=== PATIENT | male | born 1955 | race Caucasian/White ===

== ENCOUNTER 2016-09-27 08:56 | Emergency (ER) | payer OTHER ==
[2016-09-27 10:18] VITALS: BP 143/87
--- NOTE | 2016-09-27 10:49 | UC ---
Ear Complaint HPI - HPI Summary HPI Summary: 61 yo male with chronic sinus problems presents with a 4-5 day hx of progressively worsening left ear pain/popping Significant post nasal drip and left sided throat and neck pain no fever or chills able to eat and drink ok but swallowing causes his ear pain to get worse - History of Current Complaint Chief Complaint: UCEar Stated Complaint: LEFT EAR PAIN Time Seen by Provider: 09/27/16 10:30 Hx Obtained From: Patient Onset/Duration: Gradual Onset, Lasting Days Severity Initially: Mild Severity Currently: Severe Pain Intensity: 8 Pain Scale Used: 0-10 Numeric Associated Signs/Symptoms: Positive: URI Symptoms - Allergies/Home Medications Allergies/Adverse Reactions: Allergies Allergy/AdvReac Type Severity Reaction Status Date / Time Morphine AdvReac Intermediate Itching Verified 09/18/15 10:52 Home Medications: Home Medications Metformin ER (NF) 500 mg PO DAILY 09/27/16 [History Confirmed 09/27/16] Zolpidem Tartrate [Ambien] 10 mg PO DAILY 09/27/16 [History Confirmed 09/27/16] PMH/Surg Hx/FS Hx/Imm Hx Endocrine History Of: Reports: Diabetes - Surgical History Surgical History: Yes Surgery Procedure, Year, and Place: HERNIA REPAIR. LEFT LOWER LUNG LOBECTOMY. lithotripsy ? - Family History Known Family History: Positive: Hypertension, Diabetes - Social History Alcohol Use: None Substance Use Type: None Smoking Status (MU): Current Every Day Smoker Type: Cigarettes Amount Used/How Often: 1 pk daily Length of Time of Smoking/Using Tobacco: 30 YRS Have You Smoked in the Last Year: Yes Household Exposure Type: Cigarettes Review of Systems Constitutional: Negative Skin: Negative Eyes: Negative ENT: Sore Throat, Ear Ache, Nasal Discharge Respiratory: Negative Cardiovascular: Negative Gastrointestinal: Negative Genitourinary: Negative Motor: Negative Neurovascular: Negative Musculoskeletal: Negative Neurological: Negative Psychological: Negative All Other Systems Reviewed And Are Negative: Yes Physical Exam Triage Information Reviewed: Yes Appearance: Well-Appearing, No Pain Distress, Well-Nourished Vital Signs: Initial Vital Signs Temp 98.0 F 09/27/16 09:59 Pulse 71 09/27/16 09:59 Resp 16 09/27/16 09:59 BP 143/87 09/27/16 09:59 Pulse Ox 98 09/27/16 09:59 Vital Signs Reviewed: Yes Eyes: Positive: Conjunctiva Clear ENT: Positive: Nasal congestion, Nasal drainage, Other: - bilat max sinus tenderness. Negative: TMs normal - left TM retracted and red, TM bulging, Trismus, Muffled/hoarse voice Dental: Negative: Gross Decay/Caries @, Dental Fracture @, Abscess @ Neck: Positive: Supple, Nontender, No Lymphadenopathy Respiratory: Positive: Lungs clear, Normal breath sounds, No respiratory distress, No accessory muscle use Cardiovascular: Positive: RRR, No Murmur. Negative: Pulses Normal, Brisk Capillary Refill Abdomen Description: Positive: No Organomegaly, Soft, Bruit Bowel Sounds: Positive: Present Musculoskeletal: Positive: ROM Intact, No Edema Neurological: Positive: Alert. Negative: Muscle Tone Normal, Fatigued Psychological Exam: Normal Skin Exam: Normal Ear Complaint Course/Dx - Differential Dx/Diagnosis Provider Diagnoses: acute sinusitis. left serous otitis media Discharge - Discharge Plan Condition: Stable Disposition: HOME Prescriptions: Cefuroxime Axetil [Ceftin 250 MG] 250 mg PO BID #20 tab Fluticasone NASAL SPRAY 50MCG* [Flonase NASAL SPRAY 50MCG*] 2 spray BOTH NARES DAILY #1 btl HYDROcodone/ACETAMIN 5-325 MG* [Chandler 5-325 TAB*] 1 tab PO Q4H PRN #10 tab MDD 3 PRN Reason: Pain Patient Education Materials: Sinusitis (ED), Serous Otitis Media (ED) Referrals: [facility] [Primary Care Provider] - 1 Week (if not better) Additional Instructions: use narcotic at night if having trouble sleeping recheck for new or worsening symptoms
== END 2016-09-27 11:13 | disposition home or self-care (01) ==
LOC: UCCORT 08:56
DX: J01.90 Acute sinusitis, unspecified (principal); H65.92 Unspecified nonsuppurative otitis media, left ear; E11.9 Type 2 diabetes mellitus without complications; F17.210 Nicotine dependence, cigarettes, uncomplicated; Z79.84 Long term (current) use of oral hypoglycemic drugs; Z88.5 Allergy status to narcotic agent
CPT/HCPCS: 99212; G0463

== ENCOUNTER 2017-10-17 15:28 | Emergency (ER) | payer OTHER ==
--- OUTSIDE RECORDS SUMMARY | 2017-10-17 16:04 | XMS REPORT ---
:1955 External Reference #:[id number] Author Organization [facility] Address [address] [facility]/[address] [place] [address] Phone [phone] Care Team Providers Name Role Phone Kristopher Coleman M.D. Care Team Information Outsole Beveler Unavailable Payers Type Date Identification Numbers Payment Provider Subscriber Commercial Policy Number: [id number] Lif[employer]it [employer] Luis Armando Browning PayID: [id number] [address] [place] [address] Commercial Effective: Policy Number: [facility] Arm[facility] Browning 2017 [id number] [place] Expires: 2017 PayID: [id number] [address] [place] [address] Problems Description No Information Family History Date Family Member(s) Problem(s) Comments Father 82 Father No Current Problems Mother 82 Mother No Current Problems Mother Breast Cancer RESOLVED Children 6 Social History Type Date Description Comments Marital Status Has been 1 time Occupation [employer] Work Status Retired ETOH Use Denies alcohol use Smoking Patient is a current smoker, SMOKES ABOUT 1 PPD- STARTED smokes every day ABOUT 16 YO. HAS BEEN AND ON AND OFF SMOKER Daily Caffeine Consumes on average 4 cups of regular coffee per day Daily Caffeine Consumes on average 2 sodas per DIET PEPSI day Allergies, Adverse Reactions, Alerts Date Description Reaction Status Severity Comments 08/09/2016 Environmental active 08/09/2016 Morphine active 08/09/2016 NKDA inactive Medications Medication Date Status Form Strength Qnty SIG Indications Ordering Provider Amoxicillin 10/08/ Tablets 500mg 40tabs 2 by mouth J20.9 Jared, 2017 - twice a day Kristopher Leonard, 10/18/ M.D. 2018 Freestyle 07/16/ Active Strips 100unit fs qa and E11.65 Jared Lite Test 2017 s at bedtime Ahmahollie Lainez., as needed M.D. dx:e11. Janumet 06/26/ Active Tablets ER 50-1000mg Sample tab one by E11.65 Jared, 2017 24HR mouth twice Ahmad M., a day M.D. Metformin HCL 06/21/ Active Tablets ER 500mg 180tabs 1 tab by E11.65 Jared, ER 2016 24HR mouth at Ahmad M., noon M.D. Flonase 01/17/ Active Suspension 50mcg/Act 47.400m 1 J30.9 Jared, Allergy 2017 l intranasal Kristopher M., Relief puff twice M.D. a day Altace 12/04/ Active Capsules 2.5mg 90caps 1 by mouth E11.65 Jared, 2017 every day Kristopher Leonard M.D. I10 Lancets 08/09/2016 Active Misc Thin 28G 360units fs every Jared, Super Thin before Ahmad M., 28G meals and M.D. at bedtime Nexium Active Capsules DR 40mg 90caps 1 cap by K21.9 Jared, mouth every Ahmad M., day as M.D. needed K30 Zolpidem Active Tablets 10mg 30tabs 1-2 tab G47.00 Jared, Tartrate by mouth Ahmad M., at M.D. bedtime as needed Amoxicillin 08/09/2017 - Hx Tablets 500mg 40tabs 2 by H66.93 Jared, 08/19/2017 mouth Ahmad M., twice a M.D. day Cipro 07/16/2017 - Hx Tablets 500mg 20tabs 1 tab by J01.40 Jared, 07/24/2017 mouth Ahmad M., twice a M.D. day Cipro 05/16/2017 - Hx Tablets 500mg 20tabs 1 tab by J01.40 Jared, 05/24/2017 mouth Ahmad M., twice a M.D. day Nicotine Step 01/04/2017 - Hx Patches 14mg/24 30units 1 skin F17.210 Jared, 2 03/21/2017 24HR HR every day Claire Peñaloza - Hx Tablets 25mg TK 1 T PO E11.65 Unknown 09/06/2016 qd Immunizations CPT Code Status Date Vaccine Lot # [id number] Given 06/24/2016 Flu Vaccine Vital Signs Date Vital Result Comment 10/08/2017 BP Systolic 134 mmHg BP Diastolic 64 mmHg Height 70.25 inches 5'10.25" Weight 233.00 lb BMI (Body Mass Index) 33.2 kg/m2 Heart Rate 84 /min Body Temperature 97.2 F Respiratory Rate 16 /min 08/09/2017 BP Systolic 138 mmHg BP Diastolic 88 mmHg Height 70.25 inches 5'10.25" Weight 241.00 lb BMI (Body Mass Index) 34.3 kg/m2 Heart Rate 64 /min Respiratory Rate 18 /min 07/16/2017 BP Systolic 146 mmHg BP Diastolic 76 mmHg Height 70.25 inches 5'10.25" Weight 228.00 lb BMI (Body Mass Index) 32.5 kg/m2 Heart Rate 79 /min Respiratory Rate 16 /min 06/26/2017 BP Systolic 160 mmHg BP Diastolic 78 mmHg Height 70.25 inches 5'10.25" Weight 232.00 lb BMI (Body Mass Index) 33.0 kg/m2 Heart Rate 88 /min Respiratory Rate 16 /min 06/21/2017 BP Systolic 138 mmHg BP Diastolic 70 mmHg Height 70.25 inches 5'10.25" Weight 235.00 lb BMI (Body Mass Index) 33.5 kg/m2 Heart Rate 86 /min Respiratory Rate 16 /min 05/16/2017 BP Systolic 140 mmHg BP Diastolic 76 mmHg Height 70.25 inches 5'10.25" Weight 234.00 lb BMI (Body Mass Index) 33.3 kg/m2 Heart Rate 74 /min Respiratory Rate 16 /min 04/11/2017 BP Systolic 150 mmHg BP Diastolic 68 mmHg Height 70.25 inches 5'10.25" Weight 234.00 lb BMI (Body Mass Index) 33.3 kg/m2 Heart Rate 78 /min Respiratory Rate 16 /min 02/22/2017 BP Systolic 142 mmHg BP Diastolic 80 mmHg Height 70.25 inches 5'10.25" Weight 234.00 lb BMI (Body Mass Index) 33.3 kg/m2 Heart Rate 74 /min Respiratory Rate 18 /min 01/31/2017 BP Systolic 130 mmHg BP Diastolic 76 mmHg Height 70.25 inches 5'10.25" Weight 236.00 lb BMI (Body Mass Index) 33.6 kg/m2 Heart Rate 74 /min Respiratory Rate 18 /min 01/04/2017 BP Systolic 140 mmHg BP Diastolic 80 mmHg Height 70.25 inches 5'10.25" Weight 240.00 lb BMI (Body Mass Index) 34.2 kg/m2 Heart Rate 71 /min Respiratory Rate 18 /min 12/04/2016 BP Systolic 128 mmHg BP Diastolic 84 mmHg Height 70.25 inches 5'10.25" Weight 229.00 lb BMI (Body Mass Index) 32.6 kg/m2 Heart Rate 81 /min Respiratory Rate 18 /min 09/06/2016 BP Systolic 126 mmHg BP Diastolic 78 mmHg Height 70.25 inches 5'10.25" Weight 230.00 lb BMI (Body Mass Index) 32.8 kg/m2 Heart Rate 60 /min Respiratory Rate 16 /min 08/09/2016 BP Systolic 128 mmHg BP Diastolic 84 mmHg Height 70.25 inches 5'10.25" Weight 230.00 lb BMI (Body Mass Index) 32.8 kg/m2 Heart Rate 73 /min Respiratory Rate 18 /min Results Test Date Test Result H/L Range Note CBC With Diff 06/21/2017 WBC 9.0 10*3/uL (4.1-11.0) RBC 5.01 10*6/uL (4.60-6.10) HGB 15.6 g/dL (13.5-18.0) HCT 45.6 % (41.0-53.0) MCV 91.1 fL (80.0-95.0) MCH 31.1 pg (27.0-32.0) MCHC 34.2 g/dL (32.0-36.0) RDW 13.3 % (10.5-14.5) PLT 179 10*3/uL (150-450) MPV 10.3 fL (7.1-10.7) Neut % 60.8 % (35.0-75.0) Lymph % 25.1 % (16.0-52.0) Sharkey % 10.7 % High (0.0-8.0) Eos % 2.4 % (0.0-5.0) Baso % 1.0 % (0.0-4.0) Neut # 5.5 10*3/uL (1.8-7.7) Lymph # 2.3 10*3/uL (1.2-4.8) Sharkey # 1.0 10*3/uL High (0.0-0.8) Eos # 0.2 10*3/uL (0.0-0.5) Baso # 0.1 10*3/uL (0.0-0.2) CMP 06/21/2017 Sodium 138 mmol/L (136-145) Potassium 4.0 mmol/L (3.6-5.2) Chloride 104 mmol/L (100-108) Co2 27 mmol/L (22-31) Anion Gap 7 mmol/L (7-16) Urea Nitrogen 11 mg/dL (7-24) Creatinine 1.14 mg/dL (0.80-1.30) BUN/Creat Ratio 9.6 RATIO Low (10.0-20.0) Glucose 243 mg/dL High (70-99) Calcium 8.7 mg/dL (8.4-10.2) Total Protein 7.0 g/dL (6.4-8.2) Albumin 3.8 g/dL (3.2-4.5) Globulin 3.2 g/dL (2.7-4.3) Alb/Glob Ratio 1.2 RATIO Alkaline Phosphatase 64 U/L (45-117) Bilirubin,Total 0.9 mg/dL (0.0-1.0) Ast (Sgot) 26 U/L (11-39) Alt (SGPT) 70 U/L (12-78) GFR >60 ml/min/1.73m2 (>59) GFR ( Amer) >60 ml/min/1.73m2 (>59) GFR Interpretation <SEE NOTE> 1 Hemoglobin A1c 06/21/2017 Hemoglobin A1c @ 9.6 % High (4.0-6.0) Est Average Glucose 229 mg/dL 2 Laboratory test finding 06/21/2017 TSH,Ultrasensitive @ 0.789 mIU/L ( 0.360-4.170) Lipid 06/21/2017 Cholesterol @ 142 mg/dL (0-200) Triglyceride @ 166 mg/dL (30-200) HDL Cholesterol @ 49 mg/dL (>40) 3 Chol/HDL Ratio 2.9 RATIO 4 LDL Chol (Calc) 60 mg/dL (<130) 5 Laboratory test finding 06/21/2017 PSA,Total @ 2.0 ng/mL (0.0-4.0) 6 Lipid 08/09/2016 Cholesterol @ 163 mg/dL (0-200) Triglyceride @ 117 mg/dL (30-200) HDL Cholesterol @ 51 mg/dL (>40) 7 Chol/HDL Ratio 3.2 RATIO 8 LDL Chol (Calc) 89 mg/dL (<130) 9 [place] Urine Albumin @ 08/09/2016 Albumin, Urine 1.06 mg/dL Creatinine,Urine 104.00 mg/dL Alb/Creatinine Ratio 10.2 ug/mg (0.0-29.9) Laboratory test finding 08/09/2016 TSH,Ultrasensitive @ 0.935 mIU/L ( 0.360-4.170) Uric Acid 3.4 mg/dL Low (3.5-7.2) 25 Hydroxy Vit D @ 27 ng/mL Low (31-100) 10 Hemoglobin A1c 08/09/2016 Hemoglobin A1c @ 8.2 % High (4.0-6.0) Est Average Glucose 189 mg/dL 11 CMP 08/09/2016 Sodium 138 mmol/L (136-145) Potassium 4.8 mmol/L (3.6-5.2) Chloride 101 mmol/L (100-108) Co2 27 mmol/L (22-31) Anion Gap 10 mmol/L (7-16) Urea Nitrogen 15 mg/dL (7-24) Creatinine 1.23 mg/dL (0.80-1.30) BUN/Creat Ratio 12.2 RATIO (10.0-20.0) Glucose 157 mg/dL High (70-99) Calcium 8.7 mg/dL (8.4-10.2) Total Protein 7.3 g/dL (6.4-8.2) Albumin 3.9 g/dL (3.2-4.5) Globulin 3.4 g/dL (2.7-4.3) Alb/Glob Ratio 1.1 RATIO Alkaline Phosphatase 69 U/L (45-117) Bilirubin,Total 0.5 mg/dL (0.0-1.0) Ast (Sgot) 28 U/L (11-39) Alt (SGPT) 48 U/L (12-78) GFR >60 ml/min/1.73m2 (>59) GFR ( Amer) >60 ml/min/1.73m2 (>59) GFR Interpretation <SEE NOTE> 12 CBC With Diff 08/09/2016 WBC 9.1 10*3/uL (4.1-11.0) RBC 5.60 10*6/uL (4.60-6.10) HGB 16.8 g/dL (13.5-18.0) HCT 50.3 % (41.0-53.0) MCV 89.8 fL (80.0-95.0) MCH 29.9 pg (27.0-32.0) MCHC 33.4 g/dL (32.0-36.0) RDW 12.8 % (10.5-14.5) PLT 226 10*3/uL (150-450) MPV 9.7 fL (7.1-10.7) Neut % 63.0 % (35.0-75.0) Lymph % 24.4 % (16.0-52.0) Sharkey % 9.2 % High (0.0-8.0) Eos % 2.5 % (0.0-5.0) Baso % 0.9 % (0.0-4.0) Neut # 5.8 10*3/uL (1.8-7.7) Lymph # 2.2 10*3/uL (1.2-4.8) Sharkey # 0.8 10*3/uL (0.0-0.8) Eos # 0.2 10*3/uL (0.0-0.5) Baso # 0.1 10*3/uL (0.0-0.2) 1 NORMAL KIDNEY FUNCTION OR MILD DISEASE - GFR >OR=60 CHRONIC KIDNEY DISEASE - GFR 15 - 59 RENAL FAILURE - GFR <15 Est. GFR calculation based on the MDRD study equation, which assumes a steady state for creatinine. Est. GFR should not be used for medication dosing. 2 HEMOGLOBIN A1c INTERPRETATION: 4.0-6.0% GOOD GLYCEMIC CONTROL 6.1-6.5% AT RISK FOR HYPERGLYCEMIA >6.5% DIABETIC/ POOR GLYCEMIC CONTROL REFERENCE: DIABETES CARE 32(7), 2009 IF A1c RESULT IS INCONSISTENT WITH CLINICAL ESTIMATES OF GLYCEMIC CONTROL, AN INTERFERING Hb VARIANT SHOULD BE CONSIDERED. 3 PER NCEP ATP III GUIDELINES: RESULTS LOWER THAN 40 MG/DL ARE SUGGESTIVE OF INCREASED RISK FOR CORONARY ARTERY DISEASE. RESULTS > OR=TO 60 MG/DL ARE CONSIDERED A NEGATIVE RISK FACTOR. 4 INTERPRETATION OF CHOL-HDL RATIO CHD RISK FEMALE MALE VERY HIGH >8.3 >14.3 HIGH 5.6- 8.3 6.7- 14.3 AVERAGE 3.7- 5.6 4.0- 6.7 BELOW AVERAGE 2.5- 3.7 2.7- 4.0 PROTECTED <2.5 <2.7 5 PER NCEP ATP III GUIDELINES: OPTIMAL < 100 NEAR OPTIMAL 100 - 129 BORDERLINE HIGH 130 - 159 HIGH 160 - 189 VERY HIGH > 189 6 IN 20% OF CASES W/ BPH, PSA MAY BE 10 NG/ML OR MORE. SERUM PSA CONCENTRATION SHOULD NOT BE INTERPRETED ABSOLUTE EVIDENCE FOR THE PRESENCE OR ABSENCE OF MALIGNANT DISEASE. METHOD IS TAMEKA ACCESS/DXI EQUIMOLAR ASSAY. (CHEMILUMINESCENCE IMMUNOASSAY, [employer] CALIBRATION) VALUES OBTAINED WITH DIFFERENT ASSAY METHODS OR KITS CANNOT BE USED INTERCHANGEABLY. 7 PER NCEP ATP III GUIDELINES: RESULTS LOWER THAN 40 MG/DL ARE SUGGESTIVE OF INCREASED RISK FOR CORONARY ARTERY DISEASE. RESULTS > OR=TO 60 MG/DL ARE CONSIDERED A NEGATIVE RISK FACTOR. 8 INTERPRETATION OF CHOL-HDL RATIO CHD RISK FEMALE MALE VERY HIGH >8.3 >14.3 HIGH 5.6- 8.3 6.7- 14.3 AVERAGE 3.7- 5.6 4.0- 6.7 BELOW AVERAGE 2.5- 3.7 2.7- 4.0 PROTECTED <2.5 <2.7 9 PER NCEP ATP III GUIDELINES: OPTIMAL < 100 NEAR OPTIMAL 100 - 129 BORDERLINE HIGH 130 - 159 HIGH 160 - 189 VERY HIGH > 189 10 A REVIEW OF THE LITERATURE SUGGESTS THE FOLLOWING RANGES FOR THE CLASSIFICATION OF 25-OH VITAMIN D STATUS: VITAMIN D STATUS 25-OH VITAMIN D DEFICIENCY <20 NG/ML INSUFFICIENCY 20-30 NG/ML SUFFICIENCY 31 - 100 NG/ML TOXICITY > 100 NG/ML A PEDIATRIC REFERENCE RANGE HAS NOT BEEN ESTABLISHED USING THIS METHOD. 11 HEMOGLOBIN A1c INTERPRETATION: 4.0-6.0% GOOD GLYCEMIC CONTROL 6.1-6.5% AT RISK FOR HYPERGLYCEMIA >6.5% DIABETIC/ POOR GLYCEMIC CONTROL REFERENCE: DIABETES CARE 32(7), 2009 IF A1c RESULT IS INCONSISTENT WITH CLINICAL ESTIMATES OF GLYCEMIC CONTROL, AN INTERFERING Hb VARIANT SHOULD BE CONSIDERED. 12 NORMAL KIDNEY FUNCTION OR MILD DISEASE - GFR >OR=60 CHRONIC KIDNEY DISEASE - GFR 15 - 59 RENAL FAILURE - GFR <15 Est. GFR calculation based on the MDRD study equation, which assumes a steady state for creatinine. Est. GFR should not be used for medication dosing. Procedures Date CPT Code Description Status 10/08/2017 36849 Spirometry Completed 10/08/2017 40724 Tympanometry Completed 08/09/2017 85937 Tympanometry Completed 08/09/2016 94347 Visual Screening Test Completed 08/09/2016 64351 EKG Completed 08/09/2016 37964 Audiometry, Bekesy, Screening Completed Encounters Type Date Location Provider CPT E/M Dx Office Visit 10/08/2017 11:15a Kristopher España M.D. 35164 E11.65 I10 E78.2 J44.9 F17.210 G47.00 M15.9 L20.9 J30.9 K21.9 K30 K57.32 N40.1 R35.1 H90.6 E66.01 M54.5 E55.9 G47.33 J20.9 J01.40 H66.93 R06.02 R05 R09.81 Office Visit 08/09/2017 4:15p [facility] Kristopher Coleman M.D. 65924 E11.65 I10 E78.2 J44.9 F17.210 G47.00 M15.9 L20.9 J30.9 K21.9 K30 K57.32 N40.1 R35.1 H90.6 E66.01 M54.5 E55.9 G47.33 J01.40 R09.81 R05 H66.93 H92.02 Office Visit 07/16/2017 10:15a Kristopher España M.D. 46734 E11.65 I10 E78.2 J44.9 F17.210 G47.00 M15.9 L20.9 J30.9 K21.9 K30 K57.32 N40.1 R35.1 H90.6 E66.01 M54.5 E55.9 G47.33 J01.40 R09.81 R05 Office Visit 06/26/2017 2:45p Angela Gerard [facility]pt[facility] [address]6577 E11.65 I10 E78.2 F17.210 Office Visit 06/21/2017 1:30p Neptali Clar[address] [facility] 50977 E11.65 I10 R97.20 G47.00 F17.210 Office Visit 05/16/2017 4:15p Kristopher España M.D. 96373 E11.65 E78.2 J44.9 M15.9 L20.9 J30.9 G47.00 K21.9 K30 K57.32 N40.1 R35.1 H90.6 E66.01 M54.5 F17.210 E55.9 G47.33 J01.40 Office Visit 04/11/2017 4:30p [facility] Kristopher Coleman M.D. 48346 E11.65 E78.2 J44.9 M15.9 L20.9 J30.9 G47.00 K21.9 K30 K57.32 N40.1 R35.1 H90.6 E66.01 M54.5 F17.210 E55.9 G47.33 Office Visit 01/31/2017 2:00p Kristopher España M.D. 71826 E11.65 E78.2 J44.9 M15.9 L20.9 J30.9 G47.00 K21.9 K30 K57.32 N40.1 R35.1 H90.6 E66.01 M54.5 F17.210 E55.9 G47.33 Office Visit 01/04/2017 9:15a Kristopher España M.D. 19914 E11.65 E78.2 J44.9 M15.9 L20.9 J30.9 G47.00 K21.9 K30 K57.32 N40.1 R35.1 H90.6 E66.01 M54.5 F17.210 E55.9 Office Visit 12/04/2016 2:30p Kristopher España M.D. 38751 E11.65 E78.2 J44.9 M15.9 L20.9 J30.9 G47.00 K21.9 K30 K57.32 N40.1 R35.1 H90.6 E66.01 M54.5 F17.210 E55.9 Office Visit 09/06/2016 10:00a Kristopher España M.D. 73750 E11.65 E78.2 J44.9 M15.9 L20.9 J30.9 G47.00 K21.9 K30 K57.32 N40.1 R35.1 H90.6 E66.01 M54.5 F17.210 E55.9 Office Visit 08/09/2016 11:15a Kristopher España M.D. 16108 Z00.01 E11.65 E78.2 J44.9 M15.9 Z12.12 L20.9 J30.9 Z12.5 G47.00 K21.9 Z68.32 K30 K57.32 N40.1 R35.1 H90.6 Z12.11 E66.01 M54.5 F17.210 Plan of Care Future Appointment(s):11/05/2017 8:30 am - Kristopher [facility] M[facility] at [facility] - Kristopher Coleman M.D.E11.65 Type 2 diabetes mellitus with hyperglycemiaComments:DIET REVIEWED CONTINUE DIETWT LOSSF/U LAB FS qAC AND HS PRN F/U FBW FS IMROVED PT MORE ADHERENT TO RX AND DIET AND TO CHECK HGA1C NEXT [id number] Essential (primary) hypertensionComments:CHECK BP TIW ( PRN)DIET AND FLUID COUNSELING LOW SODIUM DIETWT LOSSF/U LAB SMOKING CESSATION CHECKBP TIW ( PRN)DIET AND FLUID COUNSELING LOW SODIUM DIETWT LOSSF/U LAB SMOKING SSVGRTAAHZ02.2 Mixed hyperlipidemiaComments:DIET REVIEWED CONTINUE DIETWT LOSSF/ U LAB FBW DIET REVIEWED CONTINUE DIETWT LOSSF/U LAB FBWJ44.9 Chronic obstructive pulmonary disease, unspecifiedComments:INCREASE PO FLUIDRESTSMOKING CESSATION INCREASE PO FLUIDRESTSMOKING HYMJAUUHZC25.210 Nicotine dependence, cigarettes, uncomplicatedComments:SMOKING CESSATION COUNCELLING SMOKING CESSATION XATCBDRFBNLS98.00 Insomnia, unspecifiedComments:COUNCELLING AND REASSURANCE RELAXATION TECHNIQUES DISCUSSED COUNSELED RE: STRESSORS IN LIFE TYLENOLPM OR MOTRIN PM PRN DUR CHECKED COUNCELLING AND REASSURANCE RELAXATION TECHNIQUES DISCUSSED COUNSELED RE: STRESSORS IN LIFE TYLENOL PM OR MOTRIN PM PRN DUR HFYGLXBM34.9 Polyosteoarthritis, unspecifiedComments: EXERCISE/HEAT/MESSAGETYLENOL OR MOTRIN PRNAVOID HEAVY LIFTINGWT LOSS DUR CHECKED EXERCISE/HEAT/MESSAGETYLENOL OR MOTRIN PRNAVOID HEAVY LIFTINGWT LOSS DUR JQQEEIFB39.9 Atopic dermatitis, unspecifiedComments:SKIN CARE INSTRUCTIONS LOTION OR BABY OIL 2-3 APPLICATION PER DAYUSE MOISTURIZING SOAPAVOID PROLONGED WATER EXPOSUREAVOID USING HOT WATER IN SHOWER SKIN CARE INSTRUCTIONS LOTION OR BABY OIL 2-3 APPLICATION PER DAYUSE MOISTURIZING SOAPAVOID PROLONGED WATER EXPOSUREAVOID USING HOT WATER IN OFCQJTS48.9 Allergic rhinitis, unspecifiedComments:INCREASE PO FLUID USE ANTIHISTAMINE PRN SECOND HAND SMOKING AVOIDANCE SMOKING CESSATION INCREASE PO FLUID USE ANTIHISTAMINE PRN SECOND HAND SMOKING AVOIDANCE SMOKING HOENFQXCSB02.9 Gastro-esophageal reflux disease without esophagitisComments:AVOID CAFFEINE, ETOH AND SPICY FOODSTUMS OR MYLANTA PRN CALL WITH PROBLEMS OR CONCERNSSMOKING CESSATION AVOID CAFFEINE, ETOH AND SPICY FOODSTUMS OR MYLANTA PRN CALL WITH PROBLEMS OR CONCERNSSMOKING [id number] Functional dyspepsiaComments:AVOID CAFFEINE, ETOH AND SPICY FOODSTUMS OR MYLANTA PRN CALL WITH PROBLEMS OR CONCERNSSMOKING CESSATION AVOID CAFFEINE, ETOH AND SPICY FOODSTUMS OR MYLANTA PRN CALL WITH PROBLEMS OR CONCERNSSMOKING JSRFANFNVQ48.32 Dvtrcli of lg int w/o perforation or abscess w/ o bleedingComments:STABLE AND ASYMPTOMATIC STABLE AND GDLTOCQSESZMX20.1 Benign prostatic hyperplasia with lower urinary tract sympComments:OBSERVE DISSCUSED TX OPTIONS WITH WORSENING SYMPTOMS OBSERVE DISSCUSED TX OPTIONS WITH WORSENING XVBZXIATN04.1 NocturiaComments:OBSERVE FOR NOW DISSCUSED TX OPTIONS WITH WORSENING SYMPTOMS OBSERVE FOR NOW DISSCUSED TX OPTIONS WITH WORSENING OYEGSZTFB86.6 Mixed conductive and sensorineural hearing loss, bilateralComments :OBSERVE F/U WITH ENT PRN SMOKING CESSATION OBSERVE F/U WITH ENT PRN SMOKING RIUXXIWMSE54.01 Morbid (severe) obesity due to excess caloriesComments:WT LOSS COUNCELLINGEXERCISEDIET COUNCILLING WT LOSS COUNCELLINGEXERCISEDIET BTLDTYFTZICD47.5 Low back painComments:WC CASE WC CASEE55.9 Vitamin D deficiency, unspecifiedComments:INCREASE EXPOSURE TO SUNREVIEW OF DIET INCREASE EXPOSURE TO SUNREVIEW OF DIETG47.33 Obstructive sleep apnea (adult) ( pediatric)Comments:F/U WITH ENT PRN SMOKING CESSATION F/U WITH ENT PRNJ20.9 Acute bronchitis, unspecifiedNew Medication:Amoxicillin 500 mgComments:INCREASE PO FLUIDRESTSMOKING CESSATION [id number] Acute pansinusitis, unspecifiedComments:INCREASE PO FLUIDTYLENOL OR MOTRIN PRN ANTIHISTAMINE PRNSMOKING CESSATION EFUCLQDGRDBT31.93 Otitis media, unspecified, bilateralComments:INCREASE PO FLUID TYLENOL OR MOTRIN PRN ANTIHISTAMINE PRNSMOKING CESSATION DJNCHKNYRHON96.02 Shortness of breathComments:INCREASE PO FLUIDRESTSMOKING [id number] CoughComments:INCREASE CLEAR LIQUIDSSTEAMGARGLE WARM SALT H2O TID ROBITUSSIN DM PRN SMOKING CESSATION SVBLKONHIAKJ73.81 Nasal congestionComments:INCREASE PO FLUIDTYLENOL OR MOTRIN PRNREST USE ANTIHISTAMINE PRN SMOKING CESSATION COUNCELLING
[2017-10-17 16:59] VITALS: BP 145/85
--- NOTE | 2017-10-17 17:47 | RAD ---
Indication: Cough. 2 views of the chest including dual energy PA views demonstrates scarring in the left costophrenic angle. Right lung field is clear. When compared to previous exam of March 30, 2009 no significant change is noted. IMPRESSION: Scarring in the left costophrenic angle. No definite pneumonia is identified.
--- NOTE | 2017-10-17 17:48 | ED ---
Respiratory - HPI Summary HPI Summary: 62 yr old smoker with coughing, sinus pressure and congestion. He states he has been ill for a week. He has been on plain amoxicillin but doesn't think this has cleared things up for him. He denies fever, shortness of breath. He has no other complaints. - History of Current Complaint Chief Complaint: UCRespiratory Stated Complaint: COUGH/CONGESTION Time Seen by Provider: 10/17/17 17:12 Pain Intensity: 0 - Allergy/Home Medications Allergies/Adverse Reactions: Allergies Allergy/AdvReac Type Severity Reaction Status Date / Time Morphine AdvReac Intermediate Itching Verified 10/17/17 16:59 PMH/Surg Hx/FS Hx/Imm Hx Endocrine/Hematology History: Reports: Hx Diabetes - Surgical History Surgery Procedure, Year, and Place: HERNIA REPAIR. LEFT LOWER LUNG LOBECTOMY. lithotripsy ? Infectious Disease History: No Infectious Disease History: Denies: Traveled Outside the [place] in Last 30 Days - Family History Known Family History: Positive: Hypertension, Diabetes - Social History Alcohol Use: None Substance Use Type: Reports: None Smoking Status (MU): Current Every Day Smoker Type: Cigarettes Amount Used/How Often: 1 pk daily Length of Time of Smoking/Using Tobacco: 30 YRS Have You Smoked in the Last Year: Yes Review of Systems Constitutional: Negative Positive: Nasal Discharge, Other - sinus pressure Positive: Cough All Other Systems Reviewed And Are Negative: Yes Physical Exam Triage Information Reviewed: Yes Vital Signs On Initial Exam: Initial Vitals Temp Pulse Resp BP Pulse Ox 97.6 F 80 16 145/85 99 10/17/17 16:55 10/17/17 16:55 10/17/17 16:55 10/17/17 16:55 10/17/17 16:55 Vital Signs Reviewed: Yes Appearance: Positive: Well-Appearing, No Pain Distress Skin: Positive: Warm, Skin Color Reflects Adequate Perfusion Head/Face: Positive: Normal Head/Face Inspection Eyes: Positive: EOMI ENT: Positive: Pharynx normal, TMs normal Neck: Positive: Nontender Respiratory/Lung Sounds: Positive: Clear to Auscultation, Breath Sounds Present Cardiovascular: Positive: RRR. Negative: Murmur Abdomen Description: Positive: Nontender Musculoskeletal: Positive: Strength/ROM Intact Neurological: Positive: Sensory/Motor Intact, Alert, Oriented to Person Place, Time, CN Intact II-III Psychiatric: Positive: Normal - Atul Coma Scale Best Eye Response: 4 - Spontaneous Best Motor Response: 6 - Obeys Commands Best Verbal Response: 5 - Oriented Coma Scale Total: 15 Diagnostics - Vital Signs Vital Signs Temp Pulse Resp BP Pulse Ox 10/17/17 16:55 97.6 F 80 16 145/85 99 - Laboratory Lab Statement: Any lab studies that have been ordered have been reviewed, and results considered in the medical decision making process. - Radiology chest xray Xray Interpretation: No Acute Changes Radiology Interpretation Completed By: Radiologist - scarring left costophrenic angle. Disposition - Course Course Of Treatment: 62 yr old with a son who has a positive influenza test here. Will treat him as well with tamiflu given his cough, and smoking history. Chest xray neg. - Diagnoses Provider Diagnoses: Influenza, Hypertension Discharge - Discharge Plan Condition: Good Disposition: HOME Prescriptions: Oseltamivir CAP* [Tamiflu CAP*] 75 mg PO BID #10 cap Patient Education Materials: Hypertension (ED), Influenza (ED) Referrals: [facility] [Primary Care Provider] - 2 Days
== END 2017-10-17 18:07 | disposition home or self-care (01) ==
LOC: UCCORT 15:28
DX: J11.1 Influenza due to unidentified influenza virus with other respiratory manifestations (principal); I10 Essential (primary) hypertension; E11.9 Type 2 diabetes mellitus without complications; Z90.2 Acquired absence of lung [part of]; Z88.5 Allergy status to narcotic agent; F17.210 Nicotine dependence, cigarettes, uncomplicated
CPT/HCPCS: 71046; 99212; G0463

== ENCOUNTER 2017-10-21 15:56 | Emergency (ER) | payer OTHER ==
[2017-10-21 16:17] VITALS: BP 146/73
[2017-10-21] MEDS ORDERED: Amoxicillin/Clavulanate TAB* 500 MG PO ONE (17:33)
--- NOTE | 2017-10-21 17:39 | UC ---
Throat Pain/Nasal Morris HPI - HPI Summary HPI Summary: Patient is finishing treatment for the flu, has had increased sinus pressure, cough that is productive, ear pain and GRAY. - History of Current Complaint Chief Complaint: UCGeneralIllness Stated Complaint: SINUS PRESSURE Time Seen by Provider: 10/21/17 16:24 Hx Obtained From: Patient Onset/Duration: Sudden Onset, Lasting Days Severity: Moderate Pain Intensity: 5 Associated Signs & Symptoms: Positive: Dysphagia, Sinus Discomfort, Nasal Discharge - Allergies/Home Medications Allergies/Adverse Reactions: Allergies Allergy/AdvReac Type Severity Reaction Status Date / Time Morphine AdvReac Intermediate Itching Verified 10/21/17 16:18 PMH/Surg Hx/FS Hx/Imm Hx Previously Healthy: Yes - Surgical History Surgical History: Yes Surgery Procedure, Year, and Place: HERNIA REPAIR. LEFT LOWER LUNG LOBECTOMY. lithotripsy ? - Family History Known Family History: Positive: Hypertension, Diabetes - Social History Alcohol Use: None Substance Use Type: None Smoking Status (MU): Current Every Day Smoker Type: Cigarettes Amount Used/How Often: 1 pk daily Length of Time of Smoking/Using Tobacco: 30 YRS Have You Smoked in the Last Year: Yes Household Exposure Type: Cigarettes Review of Systems Constitutional: Chills, Fatigue Skin: Negative Eyes: Negative ENT: Sore Throat, Ear Ache, Nasal Discharge, Sinus Congestion, Sinus Pain/ Tenderness Respiratory: Shortness Of Breath, Cough Cardiovascular: Negative Gastrointestinal: Negative Genitourinary: Negative Motor: Negative Neurovascular: Negative Musculoskeletal: Negative Neurological: Headache Psychological: Negative Is Patient Immunocompromised?: No All Other Systems Reviewed And Are Negative: Yes Physical Exam Triage Information Reviewed: Yes Appearance: Well-Nourished, Ill-Appearing, Pain Distress Vital Signs: Initial Vital Signs Temp 97.5 F 10/21/17 16:13 Pulse 78 10/21/17 16:13 Resp 16 10/21/17 16:13 BP 146/73 10/21/17 16:13 Pulse Ox 96 10/21/17 16:13 Vital Signs Reviewed: Yes Eye Exam: Normal ENT: Positive: Nasal congestion, Nasal drainage, TM bulging, Sinus tenderness Dental Exam: Normal Neck exam: Normal Neck: Positive: Supple, Nontender, Enlarged Nodes @ - right cervical Respiratory Exam: Normal Respiratory: Positive: Chest non-tender, No respiratory distress, No accessory muscle use, Wheezing, Inspiration Cardiovascular Exam: Normal Cardiovascular: Positive: RRR, No Murmur, Pulses Normal Abdominal Exam: Normal Abdomen Description: Positive: Nontender, No Organomegaly, Soft Bowel Sounds: Positive: Present Musculoskeletal Exam: Normal Musculoskeletal: Positive: Strength Intact, ROM Intact, No Edema Neurological Exam: Normal Neurological: Positive: Alert, Muscle Tone Normal Psychological Exam: Normal Skin Exam: Normal Throat Pain/Nasal Course/Dx - Course Course Of Treatment: hx obtained, exam performed ,meds reviewed, treated for sinusitis and bronchospasm - Differential Dx/Diagnosis Differential Diagnosis/HQI/PQRI: Otitis Media, Pharyngitis, Sinusitis, URI Provider Diagnoses: sinusitis Discharge - Discharge Plan Condition: Stable Disposition: HOME Prescriptions: Amoxicillin PO (*) [Amoxicillin 875 MG (*)] 875 mg PO BID #19 tab predniSONE TAB* [Deltasone TAB*] 40 mg PO DAILY #14 tab Patient Education Materials: Sinusitis (ED) Referrals: [facility] [Primary Care Provider] - Additional Instructions: 1. increase fluids, humdification of the air and nasal passages with saline and vaseline 2. Take the medication as prescribed. 3. FOllow up as needed.
[2017-10-21] MEDS ORDERED: Amoxicillin PO (*) 500 MG CAP PO ONE (17:51)
== END 2017-10-21 17:55 | disposition home or self-care (01) ==
LOC: UCCORT 15:56
DX: J32.9 Chronic sinusitis, unspecified (principal); H92.09 Otalgia, unspecified ear; Z90.2 Acquired absence of lung [part of]; Z88.5 Allergy status to narcotic agent; F17.210 Nicotine dependence, cigarettes, uncomplicated
CPT/HCPCS: 99212; A9270-GY; G0463

== ENCOUNTER 2018-01-18 17:24 | Emergency (ER) | payer OTHER ==
--- OUTSIDE RECORDS SUMMARY | 2018-01-18 17:38 | XMS REPORT ---
:1955 External Reference #:[id number] Author Organization [facility] Address [address] [place] [address] Phone [phone] Care Team Providers Name Role Phone Kristopher Coleman M.D. Care Team Information Global Marketing Manager Unavailable Payers Type Date Identification Numbers Payment Provider Subscriber Commercial Policy Number: [id number] Lifetime Benefit Solution Luis Armando Browning PayID: [id number] [address] [place] [address] Commercial Effective: Policy Number: [facility] Luis Armando Browning 2017 [id number] [place] Expires: 2017 PayID: [id number] [address] [place] [address] Problems Description No Information Family History Date Family Member(s) Problem(s) Comments Father 82 Father No Current Problems Mother 82 Mother No Current Problems Mother Breast Cancer RESOLVED Children 6 Social History Type Date Description Comments Marital Status Has been 1 time 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 Freestyle 07/16/ Active Strips 100uni fs qac and E11.65 Jared, Lite Test 2017 ts at bedtime Ahmad M., as needed M.D. dx:e11.65 Metformin 06/21/ Active Tablets ER 500mg 180tab 1 tab by E11.65 Jared, HCL ER 2017 24HR s mouth at Ahmad M., noon M.D. Flonase 01/17/ Active Suspension 50mcg/Act 47.400 1 J30.9 Frank, Allergy 2017 ml intranasal Blossom, Relief puff twice [employer]OR [employer] MECH[employer]IC a day Altace 12/04/ Active Capsules 2.5mg 90caps 1 by mouth E11.65 Jared, 2017 every day Kristopher Leonard M.D. I10 Lancets 08/09/2016 Active Misc Thin 28G 360units fs every E11.65 Jared, Super Thin before Ahmad M., 28G meals and M.D. at bedtime Nexium Active Capsules DR 40mg 90caps 1 cap by K21.9 Jared, mouth every Ahmad M., day as M.D. needed K30 Zolpidem Active Tablets 10mg 30tabs 1-2 tab G47.00 Jared, Tartrate by mouth Ahmad M., at M.D. bedtime as needed Amoxicillin 10/08/2017 - Hx Tablets 500mg 40tabs 2 by J20.9 Jared, 10/18/2017 mouth Ahmad M., twice a M.D. day Amoxicillin 08/09/2017 - Hx Tablets 500mg 40tabs 2 by H66.93 Jared, 08/19/2017 mouth Ahmad M., twice a M.D. day Cipro 07/16/2017 - Hx Tablets 500mg 20tabs 1 tab by J01.40 [facility], 07/24/2017 mouth Ahmad M., twice a M.D. day Janumet 06/26/2017 - Hx Tablets ER 50-1000 Sample tab one E11.65 [facility], 10/08/2017 24HR mg by mouth Ahmad M., twice a M.D. day Cipro 05/16/2017 - Hx Tablets 500mg 20tabs 1 tab by J01.40 [facility], 05/24/2017 mouth Ahmad M., twice a M.D. day Nicotine Step 01/04/2017 - Hx Patches 14mg/24 30units 1 skin F17.210 [facility], 2 03/21/2017 24HR HR every day Kristopher Leonard M.D. Januvia - Hx Tablets 25mg TK 1 T PO E11.65 Unknown 09/06/2016 qd Immunizations CPT Code Status Date Vaccine Lot # [id number] Given 06/24/2016 Flu Vaccine Vital Signs Date Vital Result Comment 01/03/2018 BP Systolic 132 mmHg BP Diastolic 64 mmHg Height 70.25 inches 5'10.25" Weight 280.00 lb BMI (Body Mass Index) 39.9 kg/m2 Heart Rate 63 /min Body Temperature 97.2 F Respiratory Rate 16 /min 10/08/2017 BP Systolic 134 mmHg BP Diastolic [...] Rate 86 /min Respiratory Rate 16 /min 06/01/2017 BP Systolic 132 mmHg BP Diastolic 78 mmHg Height 72 inches 6'0" Weight 235.00 lb BMI (Body Mass Index) 31.9 kg/m2 Heart Rate 75 /min Body Temperature 98.2 F Respiratory Rate 16 /min 05/16/2017 BP Systolic [...] % (35.0-75.0) Lymph % 25.1 % (16.0-52.0) [place] % 10.7 % High (0.0-8.0) Eos % 2.4 % (0.0-5.0) Baso % 1.0 % (0.0-4.0) Neut # 5.5 10*3/uL (1.8-7.7) Lymph # 2.3 10*3/uL (1.2-4.8) [place] # 1.0 10*3/uL High (0.0-0.8) Eos # [...] LDL Chol (Calc) 89 mg/dL (<130) 9 [facility] Urine Albumin @ 08/09/2016 Albumin, Urine 1.06 [...] % (35.0-75.0) Lymph % 24.4 % (16.0-52.0) [place] % 9.2 % High (0.0-8.0) Eos % 2.5 % (0.0-5.0) Baso % 0.9 % (0.0-4.0) Neut # 5.8 10*3/uL (1.8-7.7) Lymph # 2.2 10*3/uL (1.2-4.8) [place] # 0.8 10*3/uL (0.0-0.8) Eos # 0.2 [...] OR ABSENCE OF MALIGNANT DISEASE. METHOD IS [employer] EQUIMOLAR ASSAY. (CHEMILUMINESCENCE IMMUNOASSAY, HYBRITECH CALIBRATION) VALUES OBTAINED WITH DIFFERENT ASSAY METHODS [...] Procedures Date CPT Code Description Status 10/08/2017 16213 Spirometry Completed 10/08/2017 86114 Tympanometry Completed 08/09/2017 44865 Tympanometry Completed 08/09/2016 74962 Visual Screening Test Completed 08/09/2016 02055 EKG Completed 08/09/2016 50561 Audiometry, Bekesy, Screening Completed Encounters Type Date Location Provider CPT E/M Dx Office Visit 01/03/2018 10:30a Blossom Spence FNP 28657 J01.90 J30.9 Office Visit 10/08/2017 11:15a Kristopher España M.D. 18807 E11.65 I10 E78.2 J44.9 F17.210 G47.00 M15.9 L20.9 J30.9 K21.9 K30 K57.32 N40.1 R35.1 H90.6 E66.01 M54.5 E55.9 G47.33 J20.9 J01.40 H66.93 R06.02 R05 R09.81 Office Visit 08/09/2017 4:15p [facility] Kristopher Coleman M.D. 08226 E11.65 I10 E78.2 J44.9 F17.210 G47.00 M15.9 L20.9 J30.9 K21.9 K30 K57.32 N40.1 R35.1 H90.6 E66.01 M54.5 E55.9 G47.33 J01.40 R09.81 R05 H66.93 H92.02 Office Visit 07/16/2017 10:15a Kristopher España M.D. 83333 E11.65 I10 E78.2 J44.9 F17.210 G47.00 M15.9 L20.9 J30.9 K21.9 K30 K57.32 N40.1 R35.1 H90.6 E66.01 M54.5 E55.9 G47.33 J01.40 R09.81 R05 Office Visit 06/26/2017 2:45p Neptali Claros [facility] 37334 E11.65 I10 E78.2 F17.210 Office Visit 06/21/2017 1:30p Angela RajaniWendiey [facility] 87926 E11.65 I10 R97.20 G47.00 F17.210 Office Visit 05/16/2017 4:15p Kristopher España M.D. 47082 E11.65 E78.2 J44.9 M15.9 L20.9 J30.9 G47.00 K21.9 K30 K57.32 N40.1 R35.1 H90.6 E66.01 M54.5 F17.210 E55.9 G47.33 J01.40 Office Visit 04/11/2017 4:30p [facility] Kristopher Coleman M.D. 80675 E11.65 E78.2 J44.9 M15.9 L20.9 J30.9 G47.00 K21.9 K30 K57.32 N40.1 R35.1 H90.6 E66.01 M54.5 F17.210 E55.9 G47.33 Office Visit 01/31/2017 2:00p Kristopher España M.D. 84164 E11.65 E78.2 J44.9 M15.9 L20.9 J30.9 G47.00 K21.9 K30 K57.32 N40.1 R35.1 H90.6 E66.01 M54.5 F17.210 E55.9 G47.33 Office Visit 01/04/2017 9:15a Kristopher España M.D. 92113 E11.65 E78.2 J44.9 M15.9 L20.9 J30.9 G47.00 K21.9 K30 K57.32 N40.1 R35.1 H90.6 E66.01 M54.5 F17.210 E55.9 Office Visit 12/04/2016 2:30p Kristopher España M.D. 02507 E11.65 E78.2 J44.9 M15.9 L20.9 J30.9 G47.00 K21.9 K30 K57.32 N40.1 R35.1 H90.6 E66.01 M54.5 F17.210 E55.9 Office Visit 09/06/2016 10:00a Kristopher España M.D. 49735 E11.65 E78.2 J44.9 M15.9 L20.9 J30.9 G47.00 K21.9 K30 K57.32 N40.1 R35.1 H90.6 E66.01 M54.5 F17.210 E55.9 Office Visit 08/09/2016 11:15a Kristopher España M.D. 49430 Z00.01 E11.65 E78.2 J44.9 M15.9 Z12.12 L20.9 J30.9 Z12.5 G47.00 K21.9 Z68.32 K30 K57.32 N40.1 R35.1 H90.6 Z12.11 E66.01 M54.5 F17.210 Plan of Care 01/03/2018 - Blossom Marie, FNPJ01.90 Acute sinusitis, unspecifiedNew Medication:Augmentin 875-125 mgMucinex Maximum Strength 1200 mgComments: [id number] Allergic rhinitis, unspecifiedNew Medication:Zyrtec Allergy 10 mg
[2018-01-18 18:00] VITALS: BP 138/77
--- NOTE | 2018-01-18 18:27 | UC ---
Ear Complaint HPI - HPI Summary HPI Summary: Patient complains of right ear fullness and decreased hearing left ear feels like it Popped and decreased hearing and it feels full - History of Current Complaint Chief Complaint: UCEar Stated Complaint: EARS "FULL" Time Seen by Provider: 01/18/18 18:02 Hx Obtained From: Patient Onset/Duration: Lasting Days, Still Present Severity Initially: Mild Severity Currently: Mild Pain Intensity: 2 Pain Scale Used: 0-10 Numeric Aggravating Factors: Nothing Alleviating Factors: Other (Noted In Comments) - Has started Flonase Mucinex D Associated Signs/Symptoms: Positive: Hearing Loss - Allergies/Home Medications Allergies/Adverse Reactions: Allergies Allergy/AdvReac Type Severity Reaction Status Date / Time morphine Allergy Itching Verified 01/18/18 17:56 Home Medications: Home Medications Amoxicillin/Clavulanate TAB* [Augmentin TAB 875*] 875 mg PO BID 01/18/18 [ History Confirmed 01/18/18] Fluticasone NASAL SPRAY 50MCG* [Flonase NASAL SPRAY 50MCG*] 2 spray BOTH NARES DAILY 01/18/18 [History Confirmed 01/18/18] PMH/Surg Hx/FS Hx/Imm Hx Previously Healthy: No Endocrine History: Diabetes - Surgical History Surgical History: Yes Surgery Procedure, Year, and Place: HERNIA REPAIR. LEFT LOWER LUNG LOBECTOMY. lithotripsy ? - Family History Known Family History: Positive: Hypertension, Diabetes - Social History Occupation: Employed Full-time Lives: With Family Alcohol Use: None Substance Use Type: None Smoking Status (MU): Heavy Every Day Tobacco Smoker Type: Cigarettes Amount Used/How Often: 6 per day Length of Time of Smoking/Using Tobacco: 30 YRS Have You Smoked in the Last Year: Yes Household Exposure Type: Cigarettes Review of Systems Constitutional: Negative Skin: Negative Eyes: Negative ENT: Negative, Ear Ache Respiratory: Negative Cardiovascular: Negative Gastrointestinal: Negative Genitourinary: Negative Motor: Negative Neurovascular: Negative Musculoskeletal: Negative Neurological: Negative Psychological: Negative Is Patient Immunocompromised?: No All Other Systems Reviewed And Are Negative: Yes Physical Exam Triage Information Reviewed: Yes Appearance: Well-Appearing, No Pain Distress, Well-Nourished Vital Signs: Initial Vital Signs Temp 98.4 F 01/18/18 17:53 Pulse 71 01/18/18 17:53 Resp 16 01/18/18 17:53 BP 138/77 01/18/18 17:53 Pulse Ox 98 01/18/18 17:53 Vital Signs Reviewed: Yes Eye Exam: Normal Eyes: Positive: Conjunctiva Clear ENT Exam: Normal ENT: Positive: Normal ENT inspection, Hearing grossly normal, Pharynx normal, Nasal congestion, TMs normal - right TM normal after cerumen flushed left TM normal, Uvula midline. Negative: Tonsillar swelling, Tonsillar exudate, Trismus , Muffled voice, Hoarse voice, Dental tenderness, Sinus tenderness Dental Exam: Normal Neck exam: Normal Neck: Positive: Supple, Nontender Respiratory Exam: Normal Respiratory: Positive: Chest non-tender, Lungs clear, Normal breath sounds, No respiratory distress, No accessory muscle use Cardiovascular Exam: Normal Cardiovascular: Positive: RRR, No Murmur, Pulses Normal, Brisk Capillary Refill Musculoskeletal Exam: Normal Musculoskeletal: Positive: Strength Intact, ROM Intact, No Edema Neurological Exam: Normal Neurological: Positive: Alert, Muscle Tone Normal Psychological Exam: Normal Skin Exam: Normal Ear Complaint Course/Dx - Course Course Of Treatment: Continue Mucinex D Flonase increase fluids follow with PCP - Differential Dx/Diagnosis Provider Diagnoses: Right cerumen impaction resolved, left eustachian tube dysfunction Discharge - Sign-Out/Discharge Documenting (check all that apply): Discharge/Admit/Transfer - Discharge Plan Condition: Stable Disposition: HOME Patient Education Materials: Cerumen Impaction (ED), Barotitis Media (ED) [facility] - If Needed - Billing Disposition and Condition Condition: STABLE Disposition: HOME
== END 2018-01-18 18:40 | disposition home or self-care (01) ==
LOC: UCCORT 17:24
DX: H61.21 Impacted cerumen, right ear (principal); H69.82 Other specified disorders of Eustachian tube, left ear; F17.210 Nicotine dependence, cigarettes, uncomplicated; Z88.5 Allergy status to narcotic agent
CPT/HCPCS: 99212; G0463

== ENCOUNTER 2018-07-27 14:10 | Emergency (ER) | payer OTHER ==
[2018-07-27 14:42] VITALS: BP 150/77
--- NOTE | 2018-07-27 15:02 | UC ---
Throat Pain/Nasal Morris HPI - HPI Summary HPI Summary: Pt presents with c/o "sinus infection". Pt stated his infection is not viral and that it is "bacterial". Is requesting antibiotic. - History of Current Complaint Chief Complaint: UCRespiratory Stated Complaint: SINUSES Time Seen by Provider: 07/27/18 14:43 Hx Obtained From: Patient Onset/Duration: Sudden Onset, Lasting Days, Still Present Severity: Moderate Pain Intensity: 6 Associated Signs & Symptoms: Positive: Sinus Discomfort - Epiglottits Risk Factors Epiglottis Risk Factors: Negative - Allergies/Home Medications Allergies/Adverse Reactions: Allergies Allergy/AdvReac Type Severity Reaction Status Date / Time morphine Allergy Itching Verified 07/27/18 14:43 Home Medications: Home Medications Ramipril CAP* [Altace CAP*] 5 mg PO DAILY 07/27/18 [History Confirmed 07/27/18] PMH/Surg Hx/FS Hx/Imm Hx Previously Healthy: Yes Endocrine History: Diabetes Cardiovascular History: Hypertension - Surgical History Surgical History: Yes Surgery Procedure, Year, and Place: HERNIA REPAIR. LEFT LOWER LUNG LOBECTOMY. lithotripsy X2 - Family History Known Family History: Positive: Hypertension, Diabetes - Social History Occupation: Employed Full-time Lives: With Family Alcohol Use: None Substance Use Type: None Smoking Status (MU): Heavy Every Day Tobacco Smoker Type: Cigarettes Amount Used/How Often: 6 per day Length of Time of Smoking/Using Tobacco: 30 YRS Have You Smoked in the Last Year: Yes Household Exposure Type: Cigarettes Review of Systems Constitutional: Fatigue Skin: Negative Eyes: Negative ENT: Sinus Congestion, Sinus Pain/Tenderness Respiratory: Negative Cardiovascular: Negative Gastrointestinal: Negative Genitourinary: Negative Motor: Negative Neurovascular: Negative Musculoskeletal: Negative Neurological: Headache Psychological: Negative Is Patient Immunocompromised?: No All Other Systems Reviewed And Are Negative: Yes Physical Exam Triage Information Reviewed: Yes Appearance: Ill-Appearing Vital Signs: Initial Vital Signs Temp 97.5 F 07/27/18 14:38 Pulse 80 07/27/18 14:38 Resp 16 07/27/18 14:38 BP 150/77 07/27/18 14:38 Pulse Ox 98 07/27/18 14:38 Vital Signs Reviewed: Yes Eye Exam: Normal ENT Exam: Other ENT: Positive: Nasal congestion, Sinus tenderness Dental Exam: Normal Neck exam: Normal Respiratory Exam: Normal Respiratory: Positive: No respiratory distress Musculoskeletal Exam: Normal Neurological Exam: Normal Psychological Exam: Normal Skin Exam: Normal Throat Pain/Nasal Course/Dx - Differential Dx/Diagnosis Differential Diagnosis/HQI/PQRI: Influenza, Sinusitis, URI Provider Diagnoses: sinusitis Discharge - Sign-Out/Discharge Documenting (check all that apply): Patient Departure All imaging exams completed and their final reports reviewed: No Studies - Discharge Plan Condition: Stable Disposition: HOME Prescriptions: Amoxicillin PO (*) [Amoxicillin 875 MG (*)] 875 mg PO Q12H #20 tab guaiFENesin [Mucinex] 600 mg PO Q12H #10 tab.er.12h Patient Education Materials: Sinusitis (ED) Referrals: [facility] [Outside] - If Needed No Primary Care Phys,NOPCP [Primary Care Provider] - - Billing Disposition and Condition Condition: STABLE Disposition: Home
== END 2018-07-27 15:11 | disposition home or self-care (01) ==
LOC: UCCORT 14:10
DX: J01.90 Acute sinusitis, unspecified (principal); F17.210 Nicotine dependence, cigarettes, uncomplicated; Z88.5 Allergy status to narcotic agent
CPT/HCPCS: 99212; G0463

== ENCOUNTER 2019-02-08 09:55 | Emergency (ER) | payer OTHER ==
[2019-02-08 10:07] VITALS: BP 137/78
--- NOTE | 2019-02-08 10:18 | UC ---
Respiratory Complaint HPI - HPI Summary HPI Summary: cough x 5 days cough is productive with yellow sputum , + nasal congestion, pnd , sore throat, no fever, no chills, no body aches , + fatigue - History of Current Complaint Chief Complaint: UCGeneralIllness Stated Complaint: COUGH, CHEST CONGESTION Time Seen by Provider: 02/08/19 10:02 Hx Obtained From: Patient Onset/Duration: Gradual Onset, Lasting Days - 5, Still Present Timing: Constant Severity Initially: Moderate Severity Currently: Moderate Pain Intensity: 5 Character: Cough: Productive Aggravating Factors: Exertion, Deep Breaths Alleviating Factors: Nothing Associated Signs And Symptoms: Positive: URI, Nasal Congestion. Negative: Dyspnea, Fever, Chills, Pleuritic Chest Pain, Wheezing, Hemoptysis, Dizziness, Calf Pain, Calf Swelling, Edema, Hoarseness, Sinus Discomfort - Allergies/Home Medications Allergies/Adverse Reactions: Allergies Allergy/AdvReac Type Severity Reaction Status Date / Time morphine Allergy Itching Verified 02/08/19 10:03 Home Medications: Home Medications Loratadine [Claritin] 10 mg PO DAILY 02/08/19 [History Confirmed 02/08/19] PMH/Surg Hx/FS Hx/Imm Hx Endocrine History: Diabetes - Surgical History Surgical History: Yes Surgery Procedure, Year, and Place: HERNIA REPAIR. LEFT LOWER LUNG LOBECTOMY. lithotripsy X2 - Family History Known Family History: Positive: Hypertension, Diabetes - Social History Alcohol Use: None Substance Use Type: None Smoking Status (MU): Heavy Every Day Tobacco Smoker Type: Cigarettes Amount Used/How Often: 1 PPD Length of Time of Smoking/Using Tobacco: 30 YRS Have You Smoked in the Last Year: Yes Household Exposure Type: Cigarettes Review of Systems All Other Systems Reviewed And Are Negative: Yes Constitutional: Positive: Fatigue. Negative: Fever, Chills Skin: Positive: Negative Eyes: Positive: Negative ENT: Positive: Nasal Discharge, Sinus Congestion Respiratory: Positive: Cough Cardiovascular: Positive: Negative Is Patient Immunocompromised?: No Physical Exam Triage Information Reviewed: Yes Appearance: Well-Appearing, No Pain Distress, Well-Nourished Vital Signs: Initial Vital Signs Temp 97.3 F 02/08/19 10:04 Pulse 86 02/08/19 10:04 Resp 16 02/08/19 10:04 BP 137/78 02/08/19 10:04 Pulse Ox 97 02/08/19 10:04 Vital Signs Reviewed: Yes Eye Exam: Normal Eyes: Positive: Conjunctiva Clear ENT: Positive: Normal ENT inspection, Hearing grossly normal, Pharynx normal, Nasal congestion, Nasal drainage, TMs normal. Negative: TM bulging, TM dull, TM red, Tonsillar swelling, Tonsillar exudate Neck: Positive: Supple, Nontender, No Lymphadenopathy Respiratory Exam: Normal Respiratory: Positive: Chest non-tender, Lungs clear, Normal breath sounds Cardiovascular: Positive: RRR, No Murmur, Pulses Normal Respiratory Course/Dx - Differential Dx/Diagnosis Provider Diagnosis: URI (upper respiratory infection) Discharge - Sign-Out/Discharge Documenting (check all that apply): Patient Departure All imaging exams completed and their final reports reviewed: No Studies - Discharge Plan Condition: Stable Disposition: HOME Patient Education Materials: Upper Respiratory Infection (DC) Referrals: Kristopher Coleman MD [Primary Care Provider] - 7 Days - Billing Disposition and Condition Condition: STABLE Disposition: Home
== END 2019-02-08 10:19 | disposition home or self-care (01) ==
LOC: UCCORT 09:55
DX: J06.9 Acute upper respiratory infection, unspecified (principal); E11.9 Type 2 diabetes mellitus without complications; F17.210 Nicotine dependence, cigarettes, uncomplicated; Z88.5 Allergy status to narcotic agent
CPT/HCPCS: 99211; G0463

== ENCOUNTER 2019-10-12 12:25 | Emergency (ER) | payer OTHER ==
[2019-10-12 13:52] VITALS: BP 145/50
--- NOTE | 2019-10-12 14:05 | UC ---
FLU HPI - HPI Summary HPI Summary: Pt reports that last week he was diagnosed with sinusitis by PCP and given amoxicillin. Pt states that now he has worsening nasal congestion and PND. Pt is concerned that now he has the flu. Pt does not get flu vaccine as his "does not believe in them" - History of Current Complaint Stated Complaint: FLU LIKE ILLNESS Time Seen by Provider: 10/12/19 13:48 Hx Obtained From: Patient Onset/Duration: Gradual Onset, Lasting Days, Still Present Severity Currently: Mild Severity Initially: Mild Pain Intensity: 0 Associated Signs & Symptoms: Positive: Fever, Nasal Congestion Related Hx: Possible Flu/Infectious Exposure - Risk Factors Influenza Risk Factors: Negative - Allergy/Home Medications Allergies/Adverse Reactions: Allergies Allergy/AdvReac Type Severity Reaction Status Date / Time morphine Allergy Itching Verified 10/12/19 13:46 Home Medications: Home Medications Amoxicillin PO (*) [Amoxicillin 500 MG CAP*] 500 mg PO BID 10/12/19 [History Confirmed 10/12/19] PMH/Surg Hx/FS Hx/Imm Hx Previously Healthy: Yes Endocrine History: Diabetes Cardiovascular History: Cardiac Disease, Hypertension - Surgical History Surgical History: Yes Surgery Procedure, Year, and Place: HERNIA REPAIR. LEFT LOWER LUNG LOBECTOMY. lithotripsy X2 - Family History Known Family History: Positive: Hypertension, Diabetes - Social History Occupation: Employed Full-time Lives: With Family Alcohol Use: None Substance Use Type: None Smoking Status (MU): Heavy Every Day Tobacco Smoker Type: Cigarettes Amount Used/How Often: 1 PPD Length of Time of Smoking/Using Tobacco: On and Off Since Age 14 Have You Smoked in the Last Year: Yes Household Exposure Type: Cigarettes - Immunization History Vaccination Up to Date: No Review of Systems All Other Systems Reviewed And Are Negative: Yes Constitutional: Positive: Negative Skin: Positive: Negative Eyes: Positive: Negative ENT: Positive: Sinus Congestion, Other - PND Respiratory: Positive: Cough Cardiovascular: Positive: Negative Gastrointestinal: Positive: Negative Genitourinary: Positive: Negative Motor: Positive: Negative Neurovascular: Positive: Negative Musculoskeletal: Positive: Negative Neurological: Positive: Negative Psychological: Positive: Negative Is Patient Immunocompromised?: No Physical Exam Triage Information Reviewed: Yes Appearance: Well-Appearing Vital Signs: Initial Vital Signs Temp 99.9 F 10/12/19 13:44 Pulse 76 10/12/19 13:44 Resp 16 10/12/19 13:44 BP 145/50 10/12/19 13:44 Pulse Ox 99 10/12/19 13:44 Vital Signs Reviewed: Yes Eye Exam: Normal ENT: Positive: Nasal congestion Dental Exam: Normal Neck exam: Normal Respiratory Exam: Normal Cardiovascular Exam: Normal Musculoskeletal Exam: Normal Neurological Exam: Normal Psychological Exam: Normal Skin Exam: Normal Flu Course/Dx - Differential Dx/Diagnosis Differential Diagnosis/HQI/PQRI: Bronchitis, Influenza, Upper Respiratory Infection Provider Diagnosis: Viral syndrome Discharge ED - Sign-Out/Discharge Documenting (check all that apply): Patient Departure All imaging exams completed and their final reports reviewed: No Studies - Discharge Plan Condition: Stable Disposition: HOME Patient Education Materials: Viral Syndrome (ED) Referrals: Kristopher Coleman MD [Primary Care Provider] - If Needed - Billing Disposition and Condition Condition: STABLE Disposition: Home - Attestation Statements Provider Attestation: I was available for consult. This patient was seen by the ARABE[facility]A. The patient was not presented to , seen by or examined by me Mark Sarah MD
[2019-10-12 14:10] LABS: Influenza A Molecular NEGATIVE (Negative); Influenza B Molecular NEGATIVE (Negative)
== END 2019-10-12 14:27 | disposition home or self-care (01) ==
LOC: UCCORT 12:25
DX: B34.9 Viral infection, unspecified (principal); R05 Cough; E11.9 Type 2 diabetes mellitus without complications; I10 Essential (primary) hypertension; J34.89 Other specified disorders of nose and nasal sinuses; F17.210 Nicotine dependence, cigarettes, uncomplicated; Z88.5 Allergy status to narcotic agent
CPT/HCPCS: 99211; G0463

== ENCOUNTER 2020-01-16 16:37 | Emergency (ER) | payer OTHER ==
--- OUTSIDE RECORDS SUMMARY | 2020-01-16 17:13 | XMS REPORT | Continuity of Care Document ---
:1955 External Reference #:[id number] Author Name Kristopher Coleman M.D. (transmitted by agent of provider [employer] [facility]) Address [address] [place] [address] Problems Description No Information Available Social History Type Date Description Comments Sex Unknown ETOH Use Denies alcohol use Tobacco Use Start: Unknown Patient is a current SMOKES ABOUT 1 PPD- smoker, smokes every day STARTED ABOUT 16 YO. HAS BEEN AND ON AND OFF SMOKER Smoking Status Reviewed: 08/25/19 Patient is a current SMOKES ABOUT 1 PPD- smoker, smokes every day STARTED ABOUT 16 YO. HAS BEEN AND ON AND OFF SMOKER Allergies, Adverse Reactions, Alerts Active Allergies Reaction Severity Comments Date Environmental 08/09/2016 Morphine 08/09/2016 Inactive Allergies NKDA 08/09/2016 Medications Active Medications SIG Qnty Indications Ordering Provider Date Esomeprazole Magnesium take one capsule 90caps K21.9 Kristopher Coleman, by mouth every M.D. 40mg Capsules DR day as needed K30 Viagra 1 tab by mouth every 30tabs N52.9 Kristopher Coleman, 08/27/2019 100mg Tablets day as needed M.D. Hydrocodone-Acetamino 1 tab by mouth three 60tabs M15.9 Kristopher Coleman, 04/22/2019 phen times a day as M.D. 10-325mg Tablets needed M51.37 K86.1 Ventolin HFA 2 puff by mouth 36gm R05 Kristopher Coleman, 02/18/2019 108(90Base) every 4 hours as M.D. mcg/Act Aerosol needed Flomax 1 cap by mouth 90caps N40.1 Kristopher Coleman, 12/23/2018 0.4mg Capsules every night M.D. R35.1 N20.0 Finasteride 1 tab by mouth 30tabs N20.0 Kristopher Coleman, 12/23/2018 5mg Tablets every evening M.D. Phentermine HCL 1 by mouth every in 30caps E66.9 Kristopher Coleman, 2018 37.5mg the morning M.D. Capsules Ibuprofen 1 by mouth three 90tabs M15.9 Kristopher Coleman, 04/16/2018 800mg Tablets times a day as M.D. needed M54.5 Zyrtec Allergy 1 by mouth every day 30tabs J30.9 Kristopher Coleman, 2017 10mg M.D. Tablets Freestyle Lite Test fs qac and at bedtime 100units E11.65 Kristopher Coleman, 07/16/2017 as needed dx:e11.65 M.DHarmony Strips Metformin HCL ER 1 1/2 tab by mouth 90tabs E11.65 Kristopher Coleman, 2016 500mg twice a day every M.D. Tablets ER 24HR evening Flonase Allergy 1 intranasal puff 47.400ml J30.9 Frank, 01/17/2017 Relief twice a day GODWIN Cerrato 50mcg/Act Suspension Altace 1 by mouth every day 90caps E11.65 Kristopher Coleman, 12/04/2016 2.5mg Capsules M.D. I10 Lancets Super Thin fs every before 360units E11.65 Kristopher Coleman, 2015 28G meals and at M.D. Thin 28G [facility] bedtime Zolpidem Tartrate 1 tab by mouth at 30tabs G47.00 Kristopher Coleman, 10mg bedtime as needed M.D. Tablets History Medications Amoxicillin/Clavulanate 1 tab by 30tabs J20.9 Kristopher Coleman 12/18/2019 - Potassium mouth twice M., M.D. 12/23/2019 875-125mg Tablets a day J01.40 Prednisone 3 tab by mouth 18tabs R09.81 Kristopher ColemanHarmony, 10/29/2019 - 20mg Tablets daily 3 days, M.D. 11/06/2019 then 2 tab daily x 3 d , then 1 tab daily 3d Amoxicillin 2 by mouth 40tabs Selena Colemanhollie MigelHarmony, 10/10/2019 - 500mg twice a day M.D. 10/19/2019 Tablets Duetact 1 by mouth 90tabs E11.65 Selena Colemanhollie MigelHarmony, 07/23/2019 - 30-4mg Tablets every day M.D. 11/26/2019 Immunizations CPT Code Status Date Vaccine Lot # [id number] Given 06/24/2016 Flu Vaccine Vital Signs Date Vital Result Comment 11/26/2019 12:56pm BP Systolic 140 mmHg BP Diastolic 66 mmHg Height 70.25 inches 5'10.25" Weight 240.00 lb BMI (Body Mass Index) 34.2 kg/m2 Heart Rate 94 /min Respiratory Rate 16 /min 10/29/2019 12:13pm BP Systolic 132 mmHg BP Diastolic 64 mmHg Height 70.25 inches 5'10.25" Weight 235.00 lb BMI (Body Mass Index) 33.5 kg/m2 Heart Rate 76 /min Respiratory Rate 16 /min Results Test Acquired Date Facility Test Result H/L Range Note Rapid Influenza 10/12/2019 [facility] Influenza A NEGATIVE Negative A & B Molecular Molecular Influenza B Molecular NEGATIVE Negative 1 1 [employer]: [id number] Procedures Date Code Description Status 10/10/2019 46981 Spirometry Completed 10/10/2019 79244 Tympanometry Completed 06/24/2018 [id number] Colonoscopy Completed Medical Devices Description No Information Available Encounters Type Date Location Provider Dx Diagnosis Office Visit 12/24/2019 Kristopher EspañaHarmony, J20.9 Acute bronchitis, 10:30a M.D. unspecified J01.40 Acute pansinusitis, unspecified E11.65 Type 2 diabetes mellitus with hyperglycemia I10 Essential (primary) hypertension E78.2 Mixed hyperlipidemia J44.9 Chronic obstructive pulmonary disease, unspecified M15.9 Polyosteoarthritis, unspecified L20.9 Atopic dermatitis, unspecified K21.9 Gastro-esophageal reflux disease without esophagitis R35.1 Nocturia N40.1 Benign prostatic hyperplasia with lower urinary tract symp G47.00 Insomnia, unspecified M51.37 Other intervertebral disc degeneration, lumbosacral region E55.9 Vitamin D deficiency, unspecified F17.210 Nicotine dependence, cigarettes, uncomplicated R06.02 Shortness of breath R05 Cough R09.81 Nasal congestion N20.0 Calculus of kidney E66.9 Obesity, unspecified K86.1 Other chronic pancreatitis R16.0 Hepatomegaly, not elsewhere classified Z80.0 Family history of malignant neoplasm of digestive organs M54.17 Radiculopathy, lumbosacral region F41.9 Anxiety disorder, unspecified R31.9 Hematuria, unspecified N52.9 Male erectile dysfunction, unspecified Office Visit 12/18/2019 8:30a [facility] Kristopher Coleman J20.9 Acute bronchitis, Preston Leonard. unspecified J01.40 Acute pansinusitis, unspecified E11.65 Type 2 diabetes mellitus with hyperglycemia I10 Essential (primary) hypertension E78.2 Mixed hyperlipidemia J44.9 Chronic obstructive pulmonary disease, unspecified M15.9 Polyosteoarthritis, unspecified L20.9 Atopic dermatitis, unspecified K21.9 Gastro-esophageal reflux disease without esophagitis R35.1 Nocturia N40.1 Benign prostatic hyperplasia with lower urinary tract symp G47.00 Insomnia, unspecified M51.37 Other intervertebral disc degeneration, lumbosacral region E55.9 Vitamin D deficiency, unspecified F17.210 Nicotine dependence, cigarettes, uncomplicated R06.02 Shortness of breath R05 Cough R09.81 Nasal congestion N20.0 Calculus of kidney E66.9 Obesity, unspecified K86.1 Other chronic pancreatitis R16.0 Hepatomegaly, not elsewhere classified Z80.0 Family history of malignant neoplasm of digestive organs M54.17 Radiculopathy, lumbosacral region F41.9 Anxiety disorder, unspecified R31.9 Hematuria, unspecified N52.9 Male erectile dysfunction, unspecified Office Visit 11/26/2019 1:00p Kristopher España, E11.65 Type 2 diabetes mellitus M.DHarmony with hyperglycemia I10 Essential (primary) hypertension E78.2 Mixed hyperlipidemia J44.9 Chronic obstructive pulmonary disease, unspecified M15.9 Polyosteoarthritis, unspecified L20.9 Atopic dermatitis, unspecified K21.9 Gastro-esophageal reflux disease without esophagitis R35.1 Nocturia N40.1 Benign prostatic hyperplasia with lower urinary tract symp G47.00 Insomnia, unspecified M51.37 Other intervertebral disc degeneration, lumbosacral region E55.9 Vitamin D deficiency, unspecified F17.210 Nicotine dependence, cigarettes, uncomplicated R06.02 Shortness of breath R05 Cough R09.81 Nasal congestion N20.0 Calculus of kidney E66.9 Obesity, unspecified K86.1 Other chronic pancreatitis R16.0 Hepatomegaly, not elsewhere classified Z80.0 Family history of malignant neoplasm of digestive organs M54.17 Radiculopathy, lumbosacral region F41.9 Anxiety disorder, unspecified R31.9 Hematuria, unspecified N52.9 Male erectile dysfunction, unspecified Office Visit 10/29/2019 12:15p Kristopher España, E11.65 Type 2 diabetes mellitus M.D. with hyperglycemia I10 Essential (primary) hypertension E78.2 Mixed hyperlipidemia J44.9 Chronic obstructive pulmonary disease, unspecified M15.9 Polyosteoarthritis, unspecified L20.9 Atopic dermatitis, unspecified K21.9 Gastro-esophageal reflux disease without esophagitis R35.1 Nocturia N40.1 Benign prostatic hyperplasia with lower urinary tract symp G47.00 Insomnia, unspecified M51.37 Other intervertebral disc degeneration, lumbosacral region E55.9 Vitamin D deficiency, unspecified F17.210 Nicotine dependence, cigarettes, uncomplicated R06.02 Shortness of breath R05 Cough R09.81 Nasal congestion N20.0 Calculus of kidney E66.9 Obesity, unspecified K86.1 Other chronic pancreatitis R16.0 Hepatomegaly, not elsewhere classified Z80.0 Family history of malignant neoplasm of digestive organs M54.17 Radiculopathy, lumbosacral region F41.9 Anxiety disorder, unspecified R31.9 Hematuria, unspecified N52.9 Male erectile dysfunction, unspecified J20.9 Acute bronchitis, unspecified J01.40 Acute pansinusitis, unspecified H92.03 Otalgia, bilateral Office Visit 10/10/2019 3:30p Kristopher España, E11.65 Type 2 diabetes mellitus M.D. with hyperglycemia I10 Essential (primary) hypertension E78.2 Mixed hyperlipidemia J44.9 Chronic obstructive pulmonary disease, unspecified M15.9 Polyosteoarthritis, unspecified L20.9 Atopic dermatitis, unspecified K21.9 Gastro-esophageal reflux disease without esophagitis R35.1 Nocturia N40.1 Benign prostatic hyperplasia with lower urinary tract symp G47.00 Insomnia, unspecified M51.37 Other intervertebral disc degeneration, lumbosacral region E55.9 Vitamin D deficiency, unspecified F17.210 Nicotine dependence, cigarettes, uncomplicated R06.02 Shortness of breath R05 Cough R09.81 Nasal congestion N20.0 Calculus of kidney E66.9 Obesity, unspecified K86.1 Other chronic pancreatitis R16.0 Hepatomegaly, not elsewhere classified Z80.0 Family history of malignant neoplasm of digestive organs M54.17 Radiculopathy, lumbosacral region F41.9 Anxiety disorder, unspecified R31.9 Hematuria, unspecified N52.9 Male erectile dysfunction, unspecified J20.9 Acute bronchitis, unspecified J01.40 Acute pansinusitis, unspecified H92.03 Otalgia, bilateral Office Visit 09/22/2019 4:15p Kristopher España, E11.65 Type 2 diabetes mellitus M.D. with hyperglycemia I10 Essential (primary) hypertension E78.2 Mixed hyperlipidemia J44.9 Chronic obstructive pulmonary disease, unspecified M15.9 Polyosteoarthritis, unspecified L20.9 Atopic dermatitis, unspecified K21.9 Gastro-esophageal reflux disease without esophagitis R35.1 Nocturia N40.1 Benign prostatic hyperplasia with lower urinary tract symp G47.00 Insomnia, unspecified M51.37 Other intervertebral disc degeneration, lumbosacral region E55.9 Vitamin D deficiency, unspecified F17.210 Nicotine dependence, cigarettes, uncomplicated R06.02 Shortness of breath R05 Cough R09.81 Nasal congestion N20.0 Calculus of kidney E66.9 Obesity, unspecified K86.1 Other chronic pancreatitis R16.0 Hepatomegaly, not elsewhere classified Z80.0 Family history of malignant neoplasm of digestive organs M54.17 Radiculopathy, lumbosacral region F41.9 Anxiety disorder, unspecified R31.9 Hematuria, unspecified N52.9 Male erectile dysfunction, unspecified Office Visit 08/27/2019 2:45p Angela Menesesazalia Vesnasuzie Leonard, E11.65 Type 2 diabetes mellitus M.D. with hyperglycemia I10 Essential (primary) hypertension E78.2 Mixed hyperlipidemia J44.9 Chronic obstructive pulmonary disease, unspecified M15.9 Polyosteoarthritis, unspecified L20.9 Atopic dermatitis, unspecified K21.9 Gastro-esophageal reflux disease without esophagitis R35.1 Nocturia N40.1 Benign prostatic hyperplasia with lower urinary tract symp G47.00 Insomnia, unspecified M51.37 Other intervertebral disc degeneration, lumbosacral region E55.9 Vitamin D deficiency, unspecified F17.210 Nicotine dependence, cigarettes, uncomplicated R06.02 Shortness of breath R05 Cough R09.81 Nasal congestion N20.0 Calculus of kidney E66.9 Obesity, unspecified K86.1 Other chronic pancreatitis R16.0 Hepatomegaly, not elsewhere classified Z80.0 Family history of malignant neoplasm of digestive organs M54.17 Radiculopathy, lumbosacral region F41.9 Anxiety disorder, unspecified R31.9 Hematuria, unspecified N52.9 Male erectile dysfunction, unspecified Office Visit 07/23/2019 11:30a Kristopher España, E11.65 Type 2 diabetes mellitus M.D. with hyperglycemia I10 Essential (primary) hypertension E78.2 Mixed hyperlipidemia J44.9 Chronic obstructive pulmonary disease, unspecified M15.9 Polyosteoarthritis, unspecified L20.9 Atopic dermatitis, unspecified K21.9 Gastro-esophageal reflux disease without esophagitis R35.1 Nocturia N40.1 Benign prostatic hyperplasia with lower urinary tract symp G47.00 Insomnia, unspecified M51.37 Other intervertebral disc degeneration, lumbosacral region E55.9 Vitamin D deficiency, unspecified F17.210 Nicotine dependence, cigarettes, uncomplicated R06.02 Shortness of breath R05 Cough R09.81 Nasal congestion N20.0 Calculus of kidney E66.9 Obesity, unspecified K86.1 Other chronic pancreatitis R16.0 Hepatomegaly, not elsewhere classified Z80.0 Family history of malignant neoplasm of digestive organs M54.17 Radiculopathy, lumbosacral region F41.9 Anxiety disorder, unspecified R31.9 Hematuria, unspecified Office Visit 07/02/2019 3:15p Angela Kristopher Coleman, E11.65 Type 2 diabetes mellitus M.D. with hyperglycemia I10 Essential (primary) hypertension E78.2 Mixed hyperlipidemia J44.9 Chronic obstructive pulmonary disease, unspecified M15.9 Polyosteoarthritis, unspecified L20.9 Atopic dermatitis, unspecified K21.9 Gastro-esophageal reflux disease without esophagitis R35.1 Nocturia N40.1 Benign prostatic hyperplasia with lower urinary tract symp G47.00 Insomnia, unspecified M51.37 Other intervertebral disc degeneration, lumbosacral region E55.9 Vitamin D deficiency, unspecified F17.210 Nicotine dependence, cigarettes, uncomplicated R06.02 Shortness of breath R05 Cough R09.81 Nasal congestion N20.0 Calculus of kidney E66.9 Obesity, unspecified K86.1 Other chronic pancreatitis R16.0 Hepatomegaly, not elsewhere classified Z80.0 Family history of malignant neoplasm of digestive organs M54.17 Radiculopathy, lumbosacral region F41.9 Anxiety disorder, unspecified Assessments Date Code Description Provider 12/24/2019 J20.9 Acute bronchitis, unspecified Kristopher Coleman M.D. 12/24/2019 J01.40 Acute pansinusitis, unspecified Kristopher Coleman M.D. 12/24/2019 E11.65 Type 2 diabetes mellitus with hyperglycemia Kristopher Coleman M.D. 12/24/2019 I10 Essential (primary) hypertension Kristopher Coleman M.D. 12/24/2019 E78.2 Mixed hyperlipidemia Kristopher Coleman M.D. 12/24/2019 J44.9 Chronic obstructive pulmonary disease, Kristopher Coleman M.D. unspecified 12/24/2019 M15.9 Polyosteoarthritis, unspecified Kristopher Coleman M.D. 12/24/2019 L20.9 Atopic dermatitis, unspecified Kristopher Coleman M.D. 12/24/2019 K21.9 Gastro-esophageal reflux disease without Kristopher Coleman M.D. esophagitis 12/24/2019 R35.1 Nocturia Kristopher Coleman M.D. 12/24/2019 N40.1 Benign prostatic hyperplasia with lower Kristopher Coleman M.D. urinary tract symptoms 12/24/2019 G47.00 Insomnia, unspecified Kristopher Coleman M.D. 12/24/2019 M51.37 Other intervertebral disc degeneration, Kristopher Coleman M.D. lumbosacral region 12/24/2019 E55.9 Vitamin D deficiency, unspecified Kristopher Coleman M.D. 12/24/2019 F17.210 Nicotine dependence, cigarettes, Kristopher Coleman M.D. uncomplicated 12/24/2019 R06.02 Shortness of breath Kristopher Coleman M.D. 12/24/2019 R05 Cough Kristopher Coleman M.D. 12/24/2019 R09.81 Nasal congestion Kristopher Coleman M.D. 12/24/2019 N20.0 Calculus of kidney Kristopher Coleman M.D. 12/24/2019 E66.9 Obesity, unspecified Kristopher Coleman M.D. 12/24/2019 K86.1 Other chronic pancreatitis Kristopher Coleman M.D. 12/24/2019 R16.0 Hepatomegaly, not elsewhere classified Kristopher Coleman M.D. 12/24/2019 Z80.0 Family history of malignant neoplasm of Kristopher Coleman M.D. digestive organs 12/24/2019 M54.17 Radiculopathy, lumbosacral region Kristopher Coleman M.D. 12/24/2019 F41.9 Anxiety disorder, unspecified Kristopher Coleman M.D. 12/24/2019 R31.9 Hematuria, unspecified Kristopher Coleman M.D. 12/24/2019 N52.9 Male erectile dysfunction, unspecified Kristopher Coleman M.D. 12/18/2019 J20.9 Acute bronchitis, unspecified Kristopher Coleman M.D. 12/18/2019 J01.40 Acute pansinusitis, unspecified Kristopher Coleman M.D. 12/18/2019 E11.65 Type 2 diabetes mellitus with hyperglycemia Kristopher Coleman M.D. 12/18/2019 I10 Essential (primary) hypertension Kristopher Coleman M.D. 12/18/2019 E78.2 Mixed hyperlipidemia Kristopher Coleman M.D. 12/18/2019 J44.9 Chronic obstructive pulmonary disease, Kristopher Coleman M.D. unspecified 12/18/2019 M15.9 Polyosteoarthritis, unspecified Kristopher Coleman M.D. 12/18/2019 L20.9 Atopic dermatitis, unspecified Kristopher Coleman M.D. 12/18/2019 K21.9 Gastro-esophageal reflux disease without Kristopher Coleman M.D. esophagitis 12/18/2019 R35.1 Nocturia Kristopher Coleman M.D. 12/18/2019 N40.1 Benign prostatic hyperplasia with lower Kristopher Coleman M.D. urinary tract symptoms 12/18/2019 G47.00 Insomnia, unspecified Kristopher Coleman M.D. 12/18/2019 M51.37 Other intervertebral disc degeneration, Kristopher Coleman M.D. lumbosacral region 12/18/2019 E55.9 Vitamin D deficiency, unspecified Kristopher Coleman M.D. 12/18/2019 F17.210 Nicotine dependence, cigarettes, Kristopher Coleman M.D. uncomplicated 12/18/2019 R06.02 Shortness of breath Kristopher Coleman M.D. 12/18/2019 R05 Cough Kristopher Coleman M.D. 12/18/2019 R09.81 Nasal congestion Kristopher Coleman M.D. 12/18/2019 N20.0 Calculus of kidney Kristopher Coleman M.D. 12/18/2019 E66.9 Obesity, unspecified Kristopher Coleman M.D. 12/18/2019 K86.1 Other chronic pancreatitis Kristopher Coleman M.D. 12/18/2019 R16.0 Hepatomegaly, not elsewhere classified Kristopher Coleman M.D. 12/18/2019 Z80.0 Family history of malignant neoplasm of Kristopher Coleman M.D. digestive organs 12/18/2019 M54.17 Radiculopathy, lumbosacral region Kristopher Coleman M.D. 12/18/2019 F41.9 Anxiety disorder, unspecified Kristopher Coleman M.D. 12/18/2019 R31.9 Hematuria, unspecified Kristopher Coleman M.D. 12/18/2019 N52.9 Male erectile dysfunction, unspecified Kristopher Colemna M.D. 11/26/2019 E11.65 Type 2 diabetes mellitus with hyperglycemia Kristopher Coleman M.D. 11/26/2019 I10 Essential (primary) hypertension Kristopher Coleman M.D. 11/26/2019 E78.2 Mixed hyperlipidemia Kristopher Coleman M.D. 11/26/2019 J44.9 Chronic obstructive pulmonary disease, Kristopher Coleman M.D. unspecified 11/26/2019 M15.9 Polyosteoarthritis, unspecified Kristopher Coleman M.D. 11/26/2019 L20.9 Atopic dermatitis, unspecified Kristopher Coleman M.D. 11/26/2019 K21.9 Gastro-esophageal reflux disease without Kristopher Coleman M.D. esophagitis 11/26/2019 R35.1 Nocturia Kristopher Coleman M.D. 11/26/2019 N40.1 Benign prostatic hyperplasia with lower Kristopher Coleman M.D. urinary tract symptoms 11/26/2019 G47.00 Insomnia, unspecified Kristopher Coleman M.D. 11/26/2019 M51.37 Other intervertebral disc degeneration, Kristopher Coleman M.D. lumbosacral region 11/26/2019 E55.9 Vitamin D deficiency, unspecified Kristopher Coleman M.D. 11/26/2019 F17.210 Nicotine dependence, cigarettes, Kristopher Coleman M.D. uncomplicated 11/26/2019 R06.02 Shortness of breath Kristopher Coleman M.D. 11/26/2019 R05 Cough Kristopher Coleman M.D. 11/26/2019 R09.81 Nasal congestion Kristopher Coleman M.D. 11/26/2019 N20.0 Calculus of kidney Kristopher Coleman M.D. 11/26/2019 E66.9 Obesity, unspecified Kristopher Coleman M.D. 11/26/2019 K86.1 Other chronic pancreatitis Kristopher Coleman M.D. 11/26/2019 R16.0 Hepatomegaly, not elsewhere classified Kristopher Coleman M.D. 11/26/2019 Z80.0 Family history of malignant neoplasm of Kristopher Coleman M.D. digestive organs 11/26/2019 M54.17 Radiculopathy, lumbosacral region Kristopher Coleman M.D. 11/26/2019 F41.9 Anxiety disorder, unspecified Kristopher Coleman M.D. 11/26/2019 R31.9 Hematuria, unspecified Kristopher Coleman M.D. 11/26/2019 N52.9 Male erectile dysfunction, unspecified Kristopher Coleman M.D. 10/29/2019 E11.65 Type 2 diabetes mellitus with hyperglycemia Kristopher Coleman M.D. 10/29/2019 I10 Essential (primary) hypertension Kristopher Coleman M.D. 10/29/2019 E78.2 Mixed hyperlipidemia Kristopher Coleman M.D. 10/29/2019 J44.9 Chronic obstructive pulmonary disease, Kristopher Coleman M.D. unspecified 10/29/2019 M15.9 Polyosteoarthritis, unspecified Kristopher Coleman M.D. 10/29/2019 L20.9 Atopic dermatitis, unspecified Kristopher Coleman M.D. 10/29/2019 K21.9 Gastro-esophageal reflux disease without Kristopher Coleman M.D. esophagitis 10/29/2019 R35.1 Nocturia Kristopher Coleman M.D. 10/29/2019 N40.1 Benign prostatic hyperplasia with lower Kristopher Coleman M.D. urinary tract symptoms 10/29/2019 G47.00 Insomnia, unspecified Kristopher Coleman M.D. 10/29/2019 M51.37 Other intervertebral disc degeneration, Kristopher Coleman M.D. lumbosacral region 10/29/2019 E55.9 Vitamin D deficiency, unspecified Kristopher Coleman M.D. 10/29/2019 F17.210 Nicotine dependence, cigarettes, Kristopher Coleman M.D. uncomplicated 10/29/2019 R06.02 Shortness of breath Kristopher Coleman M.D. 10/29/2019 R05 Cough Kristopher Coleman M.D. 10/29/2019 R09.81 Nasal congestion Kristopher Coleman M.D. 10/29/2019 N20.0 Calculus of kidney Kristopher Coleman M.D. 10/29/2019 E66.9 Obesity, unspecified Kristopher Coleman M.D. 10/29/2019 K86.1 Other chronic pancreatitis Kristopher Coleman M.D. 10/29/2019 R16.0 Hepatomegaly, not elsewhere classified Kristopher Coleman M.D. 10/29/2019 Z80.0 Family history of malignant neoplasm of Kristopher Coleman M.D. digestive organs 10/29/2019 M54.17 Radiculopathy, lumbosacral region Kristopher Coleman M.D. 10/29/2019 F41.9 Anxiety disorder, unspecified Kristopher Coleman M.D. 10/29/2019 R31.9 Hematuria, unspecified Kristopher Coleman M.D. 10/29/2019 N52.9 Male erectile dysfunction, unspecified Kristopher Coleman M.D. 10/29/2019 J20.9 Acute bronchitis, unspecified Kristopher Coleman M.D. 10/29/2019 J01.40 Acute pansinusitis, unspecified Kristopher Coleman M.D. 10/29/2019 H92.03 Otalgia, bilateral Kristopher Coleman M.D. 10/10/2019 E11.65 Type 2 diabetes mellitus with hyperglycemia Kristopher Coleman M.D. 10/10/2019 I10 Essential (primary) hypertension Kristopher Coleman M.D. 10/10/2019 E78.2 Mixed hyperlipidemia Kristopher Coleman M.D. 10/10/2019 J44.9 Chronic obstructive pulmonary disease, JaredKristopher byrd M.D. unspecified 10/10/2019 M15.9 Polyosteoarthritis, unspecified Kristopher Coleman M.D. 10/10/2019 L20.9 Atopic dermatitis, unspecified Kristopher Coleman M.D. 10/10/2019 K21.9 Gastro-esophageal reflux disease without Kristopher Coleman M.D. esophagitis 10/10/2019 R35.1 Nocturia Kristopher Coleman M.D. 10/10/2019 N40.1 Benign prostatic hyperplasia with lower Kristopher Coleman M.D. urinary tract symptoms 10/10/2019 G47.00 Insomnia, unspecified Kristopher Coleman M.D. 10/10/2019 M51.37 Other intervertebral disc degeneration, Kristopher Coleman M.D. lumbosacral region 10/10/2019 E55.9 Vitamin D deficiency, unspecified Kristopher Coleman M.D. 10/10/2019 F17.210 Nicotine dependence, cigarettes, Kristopher Coleman M.D. uncomplicated 10/10/2019 R06.02 Shortness of breath Kristopher Coleman M.D. 10/10/2019 R05 Cough Kristopher Coleman M.D. 10/10/2019 R09.81 Nasal congestion Kristopher Coleman M.D. 10/10/2019 N20.0 Calculus of kidney Kristopher Coleman M.D. 10/10/2019 E66.9 Obesity, unspecified Kristopher Coleman M.D. 10/10/2019 K86.1 Other chronic pancreatitis Kristopher Coleman M.D. 10/10/2019 R16.0 Hepatomegaly, not elsewhere classified Kristopher Coleman M.D. 10/10/2019 Z80.0 Family history of malignant neoplasm of Kristopher Coleman M.D. digestive organs 10/10/2019 M54.17 Radiculopathy, lumbosacral region Kristopher Coleman M.D. 10/10/2019 F41.9 Anxiety disorder, unspecified Kristopher Coleman M.D. 10/10/2019 R31.9 Hematuria, unspecified Kristopher Coleman M.D. 10/10/2019 N52.9 Male erectile dysfunction, unspecified Kristopher Coleman M.D. 10/10/2019 J20.9 Acute bronchitis, unspecified Kristopher Coleman M.D. 10/10/2019 J01.40 Acute pansinusitis, unspecified Kristopher Coleman M.D. 10/10/2019 H92.03 Otalgia, bilateral Kristopher Coleman M.D. 09/22/2019 E11.65 Type 2 diabetes mellitus with hyperglycemia Kristopher Coleman M.D. 09/22/2019 I10 Essential (primary) hypertension Kristopher Coleman M.D. 09/22/2019 E78.2 Mixed hyperlipidemia Kristopher Coleman M.D. 09/22/2019 J44.9 Chronic obstructive pulmonary disease, Kristopher Coleman M.D. unspecified 09/22/2019 M15.9 Polyosteoarthritis, unspecified Kristopher Coleman M.D. 09/22/2019 L20.9 Atopic dermatitis, unspecified Kristopher Coleman M.D. 09/22/2019 K21.9 Gastro-esophageal reflux disease without Kristopher Coleman M.D. esophagitis 09/22/2019 R35.1 Nocturia Kristopher Coleman M.D. 09/22/2019 N40.1 Benign prostatic hyperplasia with lower Kristopher Coleman M.D. urinary tract symptoms 09/22/2019 G47.00 Insomnia, unspecified Kristopher Coleman M.D. 09/22/2019 M51.37 Other intervertebral disc degeneration, Kristopehr Coleman M.D. lumbosacral region 09/22/2019 E55.9 Vitamin D deficiency, unspecified Kristopher Coleman M.D. 09/22/2019 F17.210 Nicotine dependence, cigarettes, Kristopher Coleman M.D. uncomplicated 09/22/2019 R06.02 Shortness of breath Kristopher Coleman M.D. 09/22/2019 R05 Cough Kristopher Coleman M.D. 09/22/2019 R09.81 Nasal congestion Kristopher Coleman M.D. 09/22/2019 N20.0 Calculus of kidney Kristopher Coleman M.D. 09/22/2019 E66.9 Obesity, unspecified Kristopher Coleman M.D. 09/22/2019 K86.1 Other chronic pancreatitis Kristopher Coleman M.D. 09/22/2019 R16.0 Hepatomegaly, not elsewhere classified Kristopher Coleman M.D. 09/22/2019 Z80.0 Family history of malignant neoplasm of Kristopher Coleman M.D. digestive organs 09/22/2019 M54.17 Radiculopathy, lumbosacral region Kristopher Coleman M.D. 09/22/2019 F41.9 Anxiety disorder, unspecified Kristopher Coleman M.D. 09/22/2019 R31.9 Hematuria, unspecified Kristopher Coleman M.D. 09/22/2019 N52.9 Male erectile dysfunction, unspecified Kristopher Coleman M.D. 08/27/2019 E11.65 Type 2 diabetes mellitus with hyperglycemia Kristopher Coleman M.D. 08/27/2019 I10 Essential (primary) hypertension Kristopher Coleman M.D. 08/27/2019 E78.2 Mixed hyperlipidemia Kristopher Coleman M.D. 08/27/2019 J44.9 Chronic obstructive pulmonary disease, Kristopher Coleman M.D. unspecified 08/27/2019 M15.9 Polyosteoarthritis, unspecified Kristopher Coleman M.D. 08/27/2019 L20.9 Atopic dermatitis, unspecified Kristopher Coleman M.D. 08/27/2019 K21.9 Gastro-esophageal reflux disease without Kristopher Coleman M.D. esophagitis 08/27/2019 R35.1 Nocturia Kristopher Coleman M.D. 08/27/2019 N40.1 Benign prostatic hyperplasia with lower Kristopher Coleman M.D. urinary tract symptoms 08/27/2019 G47.00 Insomnia, unspecified Kristopher Coleman M.D. 08/27/2019 M51.37 Other intervertebral disc degeneration, Kristopher Coleman M.D. lumbosacral region 08/27/2019 E55.9 Vitamin D deficiency, unspecified Kristopher Coleman M.D. 08/27/2019 F17.210 Nicotine dependence, cigarettes, Kristopher Coleman M.D. uncomplicated 08/27/2019 R06.02 Shortness of breath Kristopher Coleman M.D. 08/27/2019 R05 Cough Kristopher Coleman M.D. 08/27/2019 R09.81 Nasal congestion Kristopher Coleman M.D. 08/27/2019 N20.0 Calculus of kidney Kristopher Coleman M.D. 08/27/2019 E66.9 Obesity, unspecified Kristopher Coleman M.D. 08/27/2019 K86.1 Other chronic pancreatitis Kristopher Coleman M.D. 08/27/2019 R16.0 Hepatomegaly, not elsewhere classified Kristopher Coleman M.D. 08/27/2019 Z80.0 Family history of malignant neoplasm of Kristopher Coleman M.D. digestive organs 08/27/2019 M54.17 Radiculopathy, lumbosacral region Kristopher Coleman M.D. 08/27/2019 F41.9 Anxiety disorder, unspecified Kristopher Coleman M.D. 08/27/2019 R31.9 Hematuria, unspecified Kristopher Coleman M.D. 08/27/2019 N52.9 Male erectile dysfunction, unspecified Kristopher Coleman M.D. 07/23/2019 E11.65 Type 2 diabetes mellitus with hyperglycemia Kristopher Coleman M.D. 07/23/2019 I10 Essential (primary) hypertension Kristopher Coleman M.D. 07/23/2019 E78.2 Mixed hyperlipidemia Kristopher Coleman M.D. 07/23/2019 J44.9 Chronic obstructive pulmonary disease, Kristopher Coleman M.D. unspecified 07/23/2019 M15.9 Polyosteoarthritis, unspecified Kristopher Coleman M.D. 07/23/2019 L20.9 Atopic dermatitis, unspecified Kristopher Coleman M.D. 07/23/2019 K21.9 Gastro-esophageal reflux disease without Kristopher Coleman M.D. esophagitis 07/23/2019 R35.1 Nocturia Kristopher Coleman M.D. 07/23/2019 N40.1 Benign prostatic hyperplasia with lower Kristopher Coleman M.D. urinary tract symptoms 07/23/2019 G47.00 Insomnia, unspecified Kristopher Coleman M.D. 07/23/2019 M51.37 Other intervertebral disc degeneration, Kristopher Coleman M.D. lumbosacral region 07/23/2019 E55.9 Vitamin D deficiency, unspecified Kristopher Coleman M.D. 07/23/2019 F17.210 Nicotine dependence, cigarettes, Kristopher Coleman M.D. uncomplicated 07/23/2019 R06.02 Shortness of breath Kristopher Coleman M.D. 07/23/2019 R05 Cough Kristopher Coleman M.D. 07/23/2019 R09.81 Nasal congestion Kristopher Coleman M.D. 07/23/2019 N20.0 Calculus of kidney Kristopher Coleman M.D. 07/23/2019 E66.9 Obesity, unspecified Kristopher Coleman M.D. 07/23/2019 K86.1 Other chronic pancreatitis Kristopher Coleman M.D. 07/23/2019 R16.0 Hepatomegaly, not elsewhere classified Kristopher Coleman M.D. 07/23/2019 Z80.0 Family history of malignant neoplasm of Kristopher Coleman M.D. digestive organs 07/23/2019 M54.17 Radiculopathy, lumbosacral region Kristopher Coleman M.D. 07/23/2019 F41.9 Anxiety disorder, unspecified Kristopher Coleman M.D. 07/23/2019 R31.9 Hematuria, unspecified Kristopher Coleman M.D. 07/09/2019 E11.65 Type 2 diabetes mellitus with hyperglycemia Kristopher Coleman M.D. 07/09/2019 I10 Essential (primary) hypertension Kristopher Coleman M.D. 07/09/2019 E78.2 Mixed hyperlipidemia Kristopher Coleman M.D. 07/09/2019 J44.9 Chronic obstructive pulmonary disease, Kristopher Coleman M.D. unspecified 07/09/2019 M15.9 Polyosteoarthritis, unspecified Kristopher Coleman M.D. 07/09/2019 L20.9 Atopic dermatitis, unspecified Kristopher Coleman M.D. 07/09/2019 K21.9 Gastro-esophageal reflux disease without Kristopher Coleman M.D. esophagitis 07/09/2019 R35.1 Nocturia Kristopher Coleman M.D. 07/09/2019 N40.1 Benign prostatic hyperplasia with lower Kristopher Coleman M.D. urinary tract symptoms 07/09/2019 G47.00 Insomnia, unspecified Kristopher Coleman M.D. 07/09/2019 M51.37 Other intervertebral disc degeneration, Kristopher Coleman M.D. lumbosacral region 07/09/2019 E55.9 Vitamin D deficiency, unspecified Kristopher Coleman M.D. 07/09/2019 F17.210 Nicotine dependence, cigarettes, Kristopher Coleman M.D. uncomplicated 07/09/2019 R06.02 Shortness of breath Kristopher Coleman M.D. 07/09/2019 R05 Cough Kristopher Coleman M.D. 07/09/2019 R09.81 Nasal congestion Kristopher Coleman M.D. 07/09/2019 N20.0 Calculus of kidney Kristopher Coleman M.D. 07/09/2019 E66.9 Obesity, unspecified Kristopher Coleman M.D. 07/09/2019 K86.1 Other chronic pancreatitis Kristopher Coleman M.D. 07/09/2019 R16.0 Hepatomegaly, not elsewhere classified Kristopher Coleman M.D. 07/09/2019 Z80.0 Family history of malignant neoplasm of Kristopher Coleman M.D. digestive organs 07/09/2019 M54.17 Radiculopathy, lumbosacral region Kristopher Coleman M.D. 07/09/2019 F41.9 Anxiety disorder, unspecified Kristopher Coleman M.D. 07/09/2019 R31.9 Hematuria, unspecified Kristopher Coleman M.D. 07/02/2019 E11.65 Type 2 diabetes mellitus with hyperglycemia Kristopher Coleman M.D. 07/02/2019 I10 Essential (primary) hypertension Kristopher Coleman M.D. 07/02/2019 E78.2 Mixed hyperlipidemia Kristopher Coleman M.D. 07/02/2019 J44.9 Chronic obstructive pulmonary disease, Kristopher Coleman M.D. unspecified 07/02/2019 M15.9 Polyosteoarthritis, unspecified Kristopher Coleman M.D. 07/02/2019 L20.9 Atopic dermatitis, unspecified Kristopher Coleman M.D. 07/02/2019 K21.9 Gastro-esophageal reflux disease without Kristopher Coleman M.D. esophagitis 07/02/2019 R35.1 Nocturia Kristopher Coleman M.D. 07/02/2019 N40.1 Benign prostatic hyperplasia with lower Kristopher Coleman M.D. urinary tract symptoms 07/02/2019 G47.00 Insomnia, unspecified Kristopher Coleman M.D. 07/02/2019 M51.37 Other intervertebral disc degeneration, Kristopher Coleman M.D. lumbosacral region 07/02/2019 E55.9 Vitamin D deficiency, unspecified Kristopher Coleman M.D. 07/02/2019 F17.210 Nicotine dependence, cigarettes, Kristopher Coleman M.D. uncomplicated 07/02/2019 R06.02 Shortness of breath Kristopher Coleman M.D. 07/02/2019 R05 Cough Kristopher Coleman M.D. 07/02/2019 R09.81 Nasal congestion Kristopher Coleman M.D. 07/02/2019 N20.0 Calculus of kidney Kristopher Coleman M.D. 07/02/2019 E66.9 Obesity, unspecified Kristopher Coleman M.D. 07/02/2019 K86.1 Other chronic pancreatitis Kristopher Coleman M.D. 07/02/2019 R16.0 Hepatomegaly, not elsewhere classified Kristopher Coleman M.D. 07/02/2019 Z80.0 Family history of malignant neoplasm of Kristopher Coleman M.D. digestive organs 07/02/2019 M54.17 Radiculopathy, lumbosacral region Kristopher Coleman M.D. 07/02/2019 F41.9 Anxiety disorder, unspecified Kristopher Coleman M.D. Plan of Treatment 12/24/2019 - Kristopher Coleman M.D.J20.9 Acute bronchitis, unspecifiedComments: VOENCXBLQ02.40 Acute pansinusitis, unspecifiedComments:OXYWJYWHE51.65 Type 2 diabetes mellitus with ugldjgycqcefoY97 Essential (primary) bsvijpzhgfatC65.2 Mixed aimzzqkwghesjyI84.9 Chronic obstructive pulmonary disease, yssuhvmwpnvW11.9 Polyosteoarthritis, fmsvakfqmswA88.9 Atopic dermatitis, xisxypuejhgB60.9 Gastro-esophageal reflux disease without ysmyomoyvmlV27.1 FwvjrpndG35.1 Benign prostatic hyperplasia with lower urinary tract gthlodmeS85.00 Insomnia, qkyyshblajlD48.37 Other intervertebral disc degeneration, lumbosacral pwrqjoO52.9 Vitamin D deficiency, jzjjlmmeakgH72.210 Nicotine dependence, cigarettes, gbkrbqmdgixsjE87.02 Shortness of vgqivvD14 JktnbR57.81 Nasal edlkpizsquX53.0 Calculus of frftqvQ09.9 Obesity, jsbcdrvooseU99.1 Other chronic xucaamhetozdX87.0 Hepatomegaly, not elsewhere snpmutssnqL29.0 Family history of malignant neoplasm of digestive erlikjR43.17 Radiculopathy, lumbosacral eboyquM39.9 Anxiety disorder, jwytycleakjD52.9 Hematuria, nhzuwxxwdsjB02.9 Male erectile dysfunction, unspecified Functional Status Description No Information Available Mental Status Description No Information Available Referrals Description No Information Available
--- OUTSIDE RECORDS SUMMARY | 2020-01-16 17:13 | XMS REPORT | Continuity of Care Document ---
:1955 External Reference #:[id number] Author Name Kristopher Coleman M.D. (transmitted by agent of provider [employer] [employer]) Address [address] [place] [address] Problems Description No Information Available Social History [...] 28G meals and at M.D. Thin 28G [facility] bedtime Zolpidem Tartrate 1 tab by mouth at 30tabs G47.00 Kristopher Coleman, 10mg bedtime as needed M.D. Tablets History Medications Amoxicillin/Clavulanate 1 tab by 30tabs J20.9 Kristopher Coleman 12/18/2019 - Potassium mouth twice M., M.D. 12/23/2019 875-125mg Tablets a day J01.40 Prednisone 3 tab by mouth 18tabs R09.81 Kristopher Coleman, 10/29/2019 - 20mg Tablets daily 3 days, M.D. 11/06/2019 then 2 tab daily x 3 d , then 1 tab daily 3d Amoxicillin 2 by mouth 40tabs Kristopher Coleman, 10/10/2019 - 500mg twice a day M.D. 10/19/2019 Tablets Duetact 1 by mouth 90tabs E11.65 Kristopher Coleman, 07/23/2019 - 30-4mg Tablets every day M.D. 11/26/2019 Immunizations CPT Code Status Date Vaccine Lot # [id number] Given 06/24/2016 Flu Vaccine Vital Signs Date [...] Result H/L Range Note Rapid Influenza 10/12/2019 [facility] Influenza A NEGATIVE Negative A & B Molecular Molecular Influenza B Molecular NEGATIVE Negative 1 CBC With Diff 06/25/2019 [facility] WBC 9.6 10*3/uL (4.1-11.0) 113 [facility] VIV (607)- - RBC 4.99 10*6/uL (4.60-6.10) HGB 15.6 g/dL (13.5-18.0) HCT 44.9 % (41.0-53.0) MCV 90.0 fL (80.0-95.0) MCH 31.2 pg (27.0-32.0) MCHC 34.7 g/dL (32.0-36.0) RDW 12.7 % (10.5-14.5) PLT 193 10*3/uL (150-450) MPV 10.5 fL (7.1-10.7) Neut % 68.0 % (35.0-75.0) Lymph % 20.0 % (16.0-52.0) [place] % 8.5 % High (0.0-8.0) Eos % 2.5 % (0.0-5.0) Baso % 1.0 % (0.0-4.0) Neut # 6.6 10*3/uL (1.8-7.7) Lymph # 1.9 10*3/uL (1.2-4.8) [place] # 0.8 10*3/uL (0.0-0.8) Eos # 0.2 10*3/uL (0.0-0.5) Baso # 0.1 10*3/uL (0.0-0.2) CMP 06/25/2019 [facility] Sodium 136 mmol/L (136-145) Yolanda NAM (366)- - Potassium 4.2 mmol/L (3.6-5.2) Chloride 103 mmol/L (100-108) Co2 23 mmol/L (22-31) Anion Gap 10 mmol/L (7-16) Urea Nitrogen 19 mg/dL (7-24) Creatinine 1.23 mg/dL (0.80-1.30) BUN/Creat Ratio 15.4 RATIO (10.0-20.0) Glucose 242 mg/dL High (70-99) Calcium 8.7 mg/dL (8.4-10.2) Total Protein 6.9 g/dL (6.4-8.2) Albumin 3.9 g/dL (3.2-4.5) Globulin 3.0 g/dL (2.7-4.3) Alb/Glob Ratio 1.3 RATIO Alkaline Phosphatase 78 U/L (45-117) Bilirubin,Total 0.7 mg/dL (0.0-1.0) Ast (Sgot) 27 U/L (11-39) Alt (SGPT) 59 U/L (12-78) GFR 59 ml/min/1.73m2 Low (>59) GFR ( Amer) >60 ml/min/1.73m2 (>59) GFR Interpretation <SEE NOTE> 2 Lipid 06/25/2019 [facility] Cholesterol @ 133 mg/dL (0-200) Yolanda NAM (113)- - Triglyceride @ 127 mg/dL (30-200) HDL Cholesterol @ 42 mg/dL (>40) 3 Chol/HDL Ratio 3.2 RATIO 4 LDL Chol (Calc) 66 mg/dL (<130) 5 Laboratory 06/25/2019 [facility] TSH,Ultrasensitive @ 1.310 (0.360- 4.170) test finding Yolanda NAM mIU/L (607)- - Hemoglobin 06/25/2019 [facility] Hemoglobin A1c @ 10.3 % High (4.0-6.0 ) 6 A1c 113 ANNMARIE NAM (607)- - Est Average Glucose 249 mg/dL Laboratory test 06/25/2019 [facility] 25 Hydroxy Vit 27 ng/mL Low (31- 100) 7 finding 113 ANNMARIE NAM D @ (607)- - Amylase 47 U/L (25-115) Lipase 259 U/L High (65-230) PSA,Total @ 0.9 ng/mL (0.0-4.0) 8 1 Accounting Generalist: [id number] 2 NORMAL KIDNEY FUNCTION OR MILD DISEASE - GFR >OR= 60 CHRONIC KIDNEY DISEASE - GFR 15 - 59 RENAL FAILURE - GFR <15 Est. GFR calculation based on the MDRD study equation, which assumes a steady state for creatinine. Est. GFR should not be used for medication dosing. 3 PER NCEP ATP III GUIDELINES: RESULTS LOWER THAN 40 MG/DL ARE SUGGESTIVE OF INCREASED RISK FOR CORONARY ARTERY DISEASE. RESULTS > OR = TO 60 MG/DL ARE CONSIDERED A NEGATIVE RISK [...] - 189 VERY HIGH > 189 6 Performed using Siemens Dumont immunoassay. Care must be taken when interpreting HbA1c results in patients with a hemoglobin variant or decreased erythrocyte lifespan. Values 5.7 - 6.4% suggest prediabetes. Values >=6.5% are diagnostic for diabetes. REFERENCE: DIABETES CARE 2018: 41(S13-S27). 7 A REVIEW OF THE LITERATURE SUGGESTS THE FOLLOWING RANGES FOR THE CLASSIFICATION OF 25-OH VITAMIN D STATUS: VITAMIN D STATUS 25-OH VITAMIN D DEFICIENCY <20 NG/ML INSUFFICIENCY 20-30 NG/ML SUFFICIENCY 31 - 100 NG/ML TOXICITY > 100 NG/ML A PEDIATRIC REFERENCE RANGE HAS NOT BEEN ESTABLISHED USING THIS METHOD. 8 IN 20% OF CASES W/ BPH, PSA MAY BE 10 NG/ML OR MORE. SERUM PSA CONCENTRATION SHOULD NOT BE INTERPRETED ABSOLUTE EVIDENCE FOR THE PRESENCE OR ABSENCE OF MALIGNANT DISEASE. METHOD IS SIEMENS SyntensiaTA LOCI CHEMILUMINESCENT IMMUNOASSAY (CALIBRATION TRACEABLE TO WHO 1ST IS, 1998,96/668). VALUES OBTAINED WITH DIFFERENT ASSAY METHODS OR KITS CANNOT BE USED INTERCHANGEABLY. Procedures Date Code Description Status 10/10/2019 58442 Spirometry Completed 10/10/2019 74062 Tympanometry Completed 06/25/2019 65846 Visual Screening Test Completed 06/25/2019 03600 EKG Completed 06/25/2019 07200 Audiometry, Bekesy, Screening Completed 06/24/2018 29556976 Colonoscopy Completed Medical Devices Description No Information Available Encounters Type Date Location Provider Dx Diagnosis Office Visit 12/18/2019 [facility] Kristopher Coleman, J20.9 Acute bronchitis, 8:30a M.D. unspecified J01.40 Acute pansinusitis, unspecified E11.65 [...] dysfunction, unspecified Office Visit 11/26/2019 1:00p Kristopher España., E11.65 Type 2 diabetes mellitus M.D. with [...] dysfunction, unspecified Office Visit 10/29/2019 12:15p Kristopher España., E11.65 Type 2 diabetes mellitus M.D. with [...] erectile dysfunction, unspecified Office Visit 08/27/2019 2:45p Kristopher España, E11.65 Type 2 diabetes mellitus [...] R31.9 Hematuria, unspecified Office Visit 07/02/2019 3:15p Kristopher España, E11.65 Type 2 diabetes mellitus [...] Radiculopathy, lumbosacral region F41.9 Anxiety disorder, unspecified Office Visit 06/25/2019 8:45a Kristopher España, E11.65 Type 2 diabetes mellitus [...] Radiculopathy, lumbosacral region F41.9 Anxiety disorder, unspecified Z00.01 Encounter for general adult medical exam w abnormal findings Assessments Date Code Description Provider 12/24/2019 J20.9 [...] 12/18/2019 N52.9 Male erectile dysfunction, unspecified Kristopher Coleman M.D. 11/26/2019 E11.65 Type 2 diabetes mellitus [...] M.D. 11/26/2019 M51.37 Other intervertebral disc degeneration, Kristopehr Coleman M.D. lumbosacral region 11/26/2019 E55.9 Vitamin [...] E11.65 Type 2 diabetes mellitus with hyperglycemia Kritsopher Coleman M.D. 10/10/2019 I10 Essential (primary) hypertension Kristopher Coleman M.D. 10/10/2019 E78.2 Mixed hyperlipidemia Kristopher Coleman M.D. 10/10/2019 J44.9 Chronic obstructive pulmonary disease, Kristopher Coleman M.D. unspecified 10/10/2019 M15.9 Polyosteoarthritis, unspecified Kristopher [...] M.D. 09/22/2019 M51.37 Other intervertebral disc degeneration, Kristopher Coleman M.D. lumbosacral region 09/22/2019 E55.9 Vitamin D deficiency, unspecified Kirstopher Coleman M.D. 09/22/2019 F17.210 Nicotine dependence, cigarettes, [...] 08/27/2019 N40.1 Benign prostatic hyperplasia with lower rKistopher Coleman M.D. urinary tract symptoms 08/27/2019 G47.00 [...] 07/09/2019 J44.9 Chronic obstructive pulmonary disease, Kristopher Cloeman M.D. unspecified 07/09/2019 M15.9 Polyosteoarthritis, unspecified Kristopher [...] M.D. 07/02/2019 I10 Essential (primary) hypertension Kristopher oCleman M.D. 07/02/2019 E78.2 Mixed hyperlipidemia Kristopher Coleman [...] Coleman M.D. 07/02/2019 N20.0 Calculus of kidney Kristophre Coleman M.D. 07/02/2019 E66.9 Obesity, unspecified Kristopher Coleman M.D. 07/02/2019 K86.1 Other chronic pancreatitis Kristopher Coleman M.D. 07/02/2019 R16.0 Hepatomegaly, not elsewhere classified Kristopher Coleman M.D. 07/02/2019 Z80.0 Family history of malignant neoplasm of Kristopher Coleman M.D. digestive organs 07/02/2019 M54.17 Radiculopathy, lumbosacral region Kristopher Coleman M.D. 07/02/2019 F41.9 Anxiety disorder, unspecified Kristopher Coleman M.D. 06/25/2019 E11.65 Type 2 diabetes mellitus with hyperglycemia Kristopher Coleman M.D. 06/25/2019 I10 Essential (primary) hypertension Kristopher Coleman M.D. 06/25/2019 E78.2 Mixed hyperlipidemia Kristopher Coleman M.D. 06/25/2019 J44.9 Chronic obstructive pulmonary disease, Kristopher Coleman M.D. unspecified 06/25/2019 M15.9 Polyosteoarthritis, unspecified Kristopher Coleman M.D. 06/25/2019 L20.9 Atopic dermatitis, unspecified Kristopher Coleman M.D. 06/25/2019 K21.9 Gastro-esophageal reflux disease without Kristopher Coleman M.D. esophagitis 06/25/2019 R35.1 Nocturia Kristopher Coleman M.D. 06/25/2019 N40.1 Benign prostatic hyperplasia with lower Kristopher Coleman M.D. urinary tract symptoms 06/25/2019 G47.00 Insomnia, unspecified Kristopher Coleman M.D. 06/25/2019 M51.37 Other intervertebral disc degeneration, Kristopher Coleman M.D. lumbosacral region 06/25/2019 E55.9 Vitamin D deficiency, unspecified Kristopher Coleman M.D. 06/25/2019 F17.210 Nicotine dependence, cigarettes, Kristopher Coleman M.D. uncomplicated 06/25/2019 R06.02 Shortness of breath Kristopher Coleman M.D. 06/25/2019 R05 Cough Kristopher Coleman M.D. 06/25/2019 R09.81 Nasal congestion Kristopher Coleman M.D. 06/25/2019 N20.0 Calculus of kidney Kristopher Coleman M.D. 06/25/2019 E66.9 Obesity, unspecified Kristopher Coleman M.D. 06/25/2019 K86.1 Other chronic pancreatitis Kristopher Coleman M.D. 06/25/2019 R16.0 Hepatomegaly, not elsewhere classified Kristopher Coleman M.D. 06/25/2019 Z80.0 Family history of malignant neoplasm of Kristopher Coleman M.D. digestive organs 06/25/2019 M54.17 Radiculopathy, lumbosacral region Kristopher Coleman M.D. 06/25/2019 F41.9 Anxiety disorder, unspecified Kristopher Coleman M.D. 06/25/2019 Z00.01 Encounter for general adult medical Kristopher Coleman M.D. examination with abnormal findings Plan of Treatment No Information Available Functional Status Description No Information Available Mental Status Description No Information Available Referrals Description No Information Available
--- OUTSIDE RECORDS SUMMARY | 2020-01-16 17:13 | XMS REPORT | Continuity of Care Document ---
:1955 External Reference #:[id number] Author Name Kristopher Coleman M.D. Address [address] [place] [address] Problems Description No Information Available Social History [...] E11.65 Kristopher Coleman, 07/16/2017 as needed dx:e11.65 M.D. Strips Metformin HCL ER 1 1/2 tab [...] 28G meals and at M.D. Thin 28G [facility] bedtime Zolpidem Tartrate 1 tab by mouth at 30tabs G47.00 Kristopher Coleman, 00 0000 10mg bedtime as needed M.D. Tablets History Medications Prednisone 3 tab by mouth 18tabs R09.81 Kristopher Coleman, 10/29/2019 - 20mg Tablets daily 3 days, M.D. 11/06/2019 then 2 tab daily x 3 d , then 1 tab daily 3d Amoxicillin 2 by mouth 40tabs Kristopher ColemanHarmony, 10/10/2019 - 500mg twice a day M.D. 10/19/2019 Tablets Duetact 1 by mouth 90tabs E11.65 Kristopher ColemanHarmony, 07/23/2019 - 30-4mg Tablets every day M.D. 11/26/2019 Immunizations CPT Code Status Date Vaccine Lot # [id number] Given 06/24/2016 Flu Vaccine Vital Signs Date [...] Result H/L Range Note Rapid Influenza 10/12/2019 [facility] Influenza A NEGATIVE Negative A & B Molecular Molecular Influenza B Molecular NEGATIVE Negative 1 CBC With Diff 06/25/2019 [facility] WBC 9.6 10*3/uL (4.1-11.0) 113 [address] VIV (607)- - RBC 4.99 10*6/uL (4.60-6.10) HGB 15.6 g/dL (13.5-18.0) HCT 44.9 % (41.0-53.0) MCV 90.0 fL (80.0-95.0) MCH 31.2 pg (27.0-32.0) MCHC 34.7 g/dL (32.0-36.0) RDW 12.7 % (10.5-14.5) PLT 193 10*3/uL (150-450) MPV 10.5 fL (7.1-10.7) Neut % 68.0 % (35.0-75.0) Lymph % 20.0 % (16.0-52.0) [place] % 8.5 % High (0.0-8.0) Eos % 2.5 % (0.0-5.0) Baso % 1.0 % (0.0-4.0) Neut # 6.6 10*3/uL (1.8-7.7) Lymph # 1.9 10*3/uL (1.2-4.8) [place] # 0.8 10*3/uL (0.0-0.8) Eos # 0.2 10*3/uL (0.0-0.5) Baso # 0.1 10*3/uL (0.0-0.2) CMP 06/25/2019 [facility] Sodium 136 mmol/L (136-145) 113 ANNMARIE NAM (604)- - Potassium 4.2 mmol/L (3.6-5.2) Chloride 103 [...] Interpretation <SEE NOTE> 2 Lipid 06/25/2019 [facility] Cholesterol @ 133 mg/dL (0-200) 113 ANNMARIE ANM (018)- - Triglyceride @ 127 mg/dL (30-200) HDL Cholesterol @ 42 mg/dL (>40) 3 Chol/HDL Ratio 3.2 RATIO 4 LDL Chol (Calc) 66 mg/dL (<130) 5 Laboratory 06/25/2019 [facility] TSH,Ultrasensitive @ 1.310 (0.360- 4.170) test finding 113 ANNMARIE NAM mIU/L (607)- - Hemoglobin 06/25/2019 [facility] Hemoglobin A1c @ 10.3 % High (4.0-6.0 ) 6 A1c 113 ANNMARIE NAM (607)- - Est Average Glucose 249 mg/dL Laboratory test 06/25/2019 [facility] 25 Hydroxy Vit 27 ng/mL Low (31- 100) 7 finding 113 ANNMARIE NAM D @ (607)- - Amylase 47 U/L (25-115) Lipase 259 U/L High (65-230) PSA,Total @ 0.9 ng/mL (0.0-4.0) 8 1 Charge Account Clerk: [id number] 2 NORMAL KIDNEY FUNCTION OR MILD DISEASE [...] HIGH > 189 6 Performed using Siemens [place] immunoassay. Care must be taken when interpreting [...] OR ABSENCE OF MALIGNANT DISEASE. METHOD IS Agenda CHEMILUMINESCENT IMMUNOASSAY (CALIBRATION TRACEABLE TO WHO 1ST IS, 1998,96/668). VALUES OBTAINED WITH DIFFERENT ASSAY METHODS OR KITS CANNOT BE USED INTERCHANGEABLY. Procedures Date Code Description Status 10/10/2019 66149 Spirometry Completed 10/10/2019 99714 Tympanometry Completed 06/25/2019 93955 Visual Screening Test Completed 06/25/2019 89096 EKG Completed 06/25/2019 34084 Audiometry, Bekesy, Screening Completed 06/24/2018 [id number] Colonoscopy Completed Medical Devices Description No Information Available Encounters Type Date Location Provider Dx Diagnosis Office Visit 11/26/2019 Kristopher España, E11.65 Type 2 diabetes 1:00p M.D. mellitus with hyperglycemia I10 Essential (primary) hypertension [...] erectile dysfunction, unspecified Office Visit 10/29/2019 12:15p Angela Menesesazalia Vesnasuzie Leonard, E11.65 Type 2 [...] H92.03 Otalgia, bilateral Office Visit 10/10/2019 3:30p Angela Jared, Vesnasuzie Leonard, E11.65 Type 2 diabetes mellitus [...] general adult medical exam w abnormal findings Office Visit 06/23/2019 4:45p Kristopher España, E11.65 Type 2 diabetes mellitus [...] disorder, unspecified Assessments Date Code Description Provider 11/26/2019 E11.65 Type 2 diabetes mellitus with [...] Coleman M.D. 11/26/2019 F17.210 Nicotine dependence, cigarettes, Kristohper Coleman M.D. uncomplicated 11/26/2019 R06.02 Shortness of [...] Coleman M.D. 10/29/2019 J20.9 Acute bronchitis, unspecified JaredKristopher vieyra M.D. 10/29/2019 J01.40 Acute pansinusitis, unspecified Kristopher [...] Kristopher Coleman M.D. examination with abnormal findings 06/23/2019 E11.65 Type 2 diabetes mellitus with hyperglycemia Kristopher Coleman M.D. 06/23/2019 I10 Essential (primary) hypertension Kristopher Coleman M.D. 06/23/2019 E78.2 Mixed hyperlipidemia Kristopher Coleman M.D. 06/23/2019 J44.9 Chronic obstructive pulmonary disease, Kristopher Coleman M.D. unspecified 06/23/2019 M15.9 Polyosteoarthritis, unspecified Kristopher Coleman M.D. 06/23/2019 L20.9 Atopic dermatitis, unspecified Kristopher Coleman M.D. 06/23/2019 K21.9 Gastro-esophageal reflux disease without Kristopher Coleman M.D. esophagitis 06/23/2019 R35.1 Nocturia Kristopher Coleman M.D. 06/23/2019 N40.1 Benign prostatic hyperplasia with lower Kristopher Coleman M.D. urinary tract symptoms 06/23/2019 G47.00 Insomnia, unspecified Kristopher Coleman M.D. 06/23/2019 M51.37 Other intervertebral disc degeneration, Kristopher Coleman M.D. lumbosacral region 06/23/2019 E55.9 Vitamin D deficiency, unspecified Kristopher Coleman M.D. 06/23/2019 F17.210 Nicotine dependence, cigarettes, Kristopher Coleman M.D. uncomplicated 06/23/2019 R06.02 Shortness of breath Kristopher Coleman M.D. 06/23/2019 R05 Cough Kristopher Coleman M.D. 06/23/2019 R09.81 Nasal congestion Kristopher Coleman M.D. 06/23/2019 N20.0 Calculus of kidney Kristopher Coleman M.D. 06/23/2019 E66.9 Obesity, unspecified Kristopher Coleman M.D. 06/23/2019 K86.1 Other chronic pancreatitis Kristopher Coleman M.D. 06/23/2019 R16.0 Hepatomegaly, not elsewhere classified Kristopher Coleman M.D. 06/23/2019 Z80.0 Family history of malignant neoplasm of Kristopher Coleman M.D. digestive organs 06/23/2019 M54.17 Radiculopathy, lumbosacral region Kristopher Coleman M.D. 06/23/2019 F41.9 Anxiety disorder, unspecified Kristopher Coleman M.D. 06/18/2019 E11.65 Type 2 diabetes mellitus with hyperglycemia Kristopher Coleman M.D. 06/18/2019 I10 Essential (primary) hypertension Kristopher Coleman M.D. 06/18/2019 E78.2 Mixed hyperlipidemia Kristopher Coleman M.D. 06/18/2019 J44.9 Chronic obstructive pulmonary disease, Kristopher Coleman M.D. unspecified 06/18/2019 M15.9 Polyosteoarthritis, unspecified Kristopher Coleman M.D. 06/18/2019 L20.9 Atopic dermatitis, unspecified Kristopher Coleman M.D. 06/18/2019 K21.9 Gastro-esophageal reflux disease without Kristopher Coleman M.D. esophagitis 06/18/2019 R35.1 Nocturia Kristopher Coleman M.D. 06/18/2019 N40.1 Benign prostatic hyperplasia with lower Kristopher Coleman M.D. urinary tract symptoms 06/18/2019 G47.00 Insomnia, unspecified Kristopher Coleman M.D. 06/18/2019 M51.37 Other intervertebral disc degeneration, Kristopher Coleman M.D. lumbosacral region 06/18/2019 E55.9 Vitamin D deficiency, unspecified Kristopher Coleman M.D. 06/18/2019 F17.210 Nicotine dependence, cigarettes, Kristopher Coleman M.D. uncomplicated 06/18/2019 R06.02 Shortness of breath Kristopher Coleman M.D. 06/18/2019 R05 Cough Kristopher Coleman M.D. 06/18/2019 R09.81 Nasal congestion Kristopher Coleman M.D. 06/18/2019 N20.0 Calculus of kidney Kristopher Coleman M.D. 06/18/2019 E66.9 Obesity, unspecified Kristopher Coleman M.D. 06/18/2019 K86.1 Other chronic pancreatitis Kristopher Coleman M.D. 06/18/2019 R16.0 Hepatomegaly, not elsewhere classified Kristopher Coleman M.D. 06/18/2019 Z80.0 Family history of malignant neoplasm of Kristopher Coleman M.D. digestive organs 06/18/2019 M54.17 Radiculopathy, lumbosacral region Kristopher Coleman M.D. 06/18/2019 F41.9 Anxiety disorder, unspecified Kristopher Coleman M.D. Plan of Treatment 11/26/2019 - Kristopher Coleman M.D.E11.65 Type 2 diabetes mellitus with hyperglycemiaComments:DIET REVIEWED CONTINUE DIETWT LOSSFS qAC AND HS PRN F/U FBW WILL INCREASE METFORMIN TO 1 1/2 TAB BIDI10 Essential (primary) hypertensionComments:CHECK BP TIW ( PRN)DIET AND FLUID COUNSELING LOW SODIUM DIETWT LOSSF/U LAB SMOKING NMBFOWIWRE98.2 Mixed hyperlipidemiaComments:DIET REVIEWED CONTINUE DIETWT LOSSF/U LAB FBWJ44.9 Chronic obstructive pulmonary disease, unspecifiedComments:INCREASE PO FLUIDRESTSMOKING TWONIZQXZH54.9 Polyosteoarthritis, unspecifiedComments:EXERCISE/HEAT/MESSAGETYLENOL OR MOTRIN PRNAVOID HEAVY LIFTINGWT LOSSL20.9 Atopic dermatitis, unspecifiedComments:SKIN CARE INSTRUCTIONS LOTION OR BABY OIL 2-3 APPLICATION PER DAYUSE MOISTURIZING SOAPAVOID PROLONGED WATER EXPOSUREAVOID USING HOT WATER IN XCHTVOH83.9 Gastro- esophageal reflux disease without esophagitisComments:AVOID CAFFEINE, ETOH AND SPICY FOODSTUMS OR MYLANTA PRN CALL WITH PROBLEMS OR CONCERNSSMOKING CXRVMCFOYO29.1 NocturiaComments:FAPOFCHN08.1 Benign prostatic hyperplasia with lower urinary tract symptomsComments:FPIQVZKA55.00 Insomnia, unspecifiedComments :COUNCELLING AND REASSURANCE RELAXATION TECHNIQUES DISCUSSED COUNSELED RE: STRESSORS IN LIFE TYLENOLPM OR MOTRIN PM PRN DUR NRINKEIL72.37 Other intervertebral disc degeneration, lumbosacral regionComments:EXERCISE/HEAT / MESSAGEAVOID HEAVY LIFTING WT LOSSTYLENOL OR MOTRIN PRN DUR KHOKXWPH11.9 Vitamin D deficiency, unspecifiedComments:INCREASE EXPOSURE TO SUNREVIEW OF DIETF17.210 Nicotine dependence, cigarettes, uncomplicatedComments:SMOKING CESSATION ZPKZMVDLUVIC76.02 Shortness of breathComments:INCREASE PO FLUIDRESTSMOKING OETLRXNIZV24 CoughComments:INCREASE CLEAR LIQUIDSSTEAMGARGLE WARM SALT H2O TID ROBITUSSIN DM PRN SMOKING CESSATION JYBQYUPLIINP36.81 Nasal congestionComments:INCREASE PO FLUIDTYLENOL OR MOTRIN PRNREST USE ANTIHISTAMINE PRN SMOKING CESSATION WSAQMQWOXYXA27.0 Calculus of kidneyComments:STABLE F/U WITH UROLOGY PRNE66.9 Obesity, unspecifiedComments:WT LOSS COUNCELLINGEXERCISEDIET COUNCILLING DUR NBPWXXXS47.1 Other chronic pancreatitisComments:ASYMPTOMATIC AND STABLE AVOID ETOH ABUSE F/ULABR16.0 Hepatomegaly, not elsewhere classifiedComments:OBSERVEF/U WITH GIZ80.0 Family history of malignant neoplasm of digestive organsComments:OBSERVEF/U WITH GI YEARLY CT OF ABD. , NEXT NOVEMBER 2019M54.17 Radiculopathy, lumbosacral regionComments:EXERCISE/HEAT /MESSAGE AVOID HEAVY LIFTING WT LOSS TYLENOL OR MOTRIN PRNF41.9 Anxiety disorder, unspecifiedComments:COUNCELLING AND REASSURANCE RELAXATION TECHNIQUESSTRESSORS IN LIFE AVOID ALL ENERGY/HIGH CAFFEINE DLNSLQH06.9 Hematuria, unspecifiedComments:U/A IN OUT OFFICE WNLN52.9 Male erectile dysfunction, unspecifiedComments:CONTINUE RX PRNOBSERVE Functional Status Description No Information Available Mental Status Description No Information Available Referrals Description No Information Available
[2020-01-16 17:43] VITALS: BP 140/75
--- NOTE | 2020-01-16 17:54 | UC ---
Throat Pain/Nasal Morris HPI - HPI Summary HPI Summary: 64 yo with hx of hypertension and allergies, with past hx of bronchitis and sinus infections, with 4 day hx of increased sinus pressure and drainage, with increased cough and some wheeze today. No fever, no chest pain. He has albuterol at home but has not yet used it. He does use flonase and loratidine for allergy symptoms. Continues to smoke although intends to stop. 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 He considers himself at low risk at this time, and does not want testing. - History of Current Complaint Chief Complaint: UCRespiratory Stated Complaint: SINUS COMPLAINT Time Seen by Provider: 01/16/20 17:31 Hx Obtained From: Patient Onset/Duration: Gradual Onset Severity: Worse Since: - yesterday Pain Intensity: 0 Cough: Productive - scant production Associated Signs & Symptoms: Positive: Wheezing, Sinus Discomfort, Nasal Discharge. Negative: Fever Related History: Seasonal Allergies, Smoking - Epiglottits Risk Factors Epiglottis Risk Factors: Negative - Allergies/Home Medications Allergies/Adverse Reactions: Allergies Allergy/AdvReac Type Severity Reaction Status Date / Time morphine Allergy Itching Verified 01/16/20 17:30 Home Medications: Home Medications Metformin ER (NF) 500 mg PO DAILY 09/27/16 [History Confirmed 01/16/20] Zolpidem Tartrate [Ambien] 10 mg PO BEDTIME 09/27/16 [History Confirmed 01/16/20 ] Fluticasone NASAL SPRAY 50MCG* [Flonase NASAL SPRAY 50MCG*] 2 spray BOTH NARES DAILY 01/18/18 [History Confirmed 01/16/20] Ramipril CAP* [Altace CAP*] 5 mg PO DAILY 07/27/18 [History Confirmed 01/16/20] Amoxicillin PO (*) [Amoxicillin 500 MG CAP*] 500 mg PO ONCE 10/12/19 [History Confirmed 01/16/20] Albuterol HFA INHALER* [Ventolin HFA Inhaler*] 2 puff INH Q6H PRN #1 mdi [Rx] Amoxicillin/Clavulanate TAB* [Augmentin TAB 875*] 875 mg PO BID #14 tab [Rx] PMH/Surg Hx/FS Hx/Imm Hx Previously Healthy: Yes Endocrine History: Diabetes - uses ramipril to decrease cardiac risk Respiratory History: Asthma - Surgical History Surgical History: Yes Surgery Procedure, Year, and Place: HERNIA REPAIR. LEFT LOWER LUNG LOBECTOMY. lithotripsy X2 - Family History Known Family History: Positive: Hypertension, Diabetes - Social History Occupation: Employed Full-time - furloughed Lives: With Family Alcohol Use: None Substance Use Type: None Smoking Status (MU): Heavy Every Day Tobacco Smoker Type: Cigarettes Amount Used/How Often: 1 PPD Length of Time of Smoking/Using Tobacco: On and Off Since Age 14 Have You Smoked in the Last Year: Yes Household Exposure Type: Cigarettes - Immunization History Vaccination Up to Date: No Review of Systems All Other Systems Reviewed And Are Negative: Yes Constitutional: Positive: Negative Skin: Positive: Negative Eyes: Positive: Negative ENT: Positive: Nasal Discharge, Sinus Congestion. Negative: Sore Throat, Ear Ache Respiratory: Positive: Cough. Negative: Shortness Of Breath Cardiovascular: Negative: Palpitations Gastrointestinal: Positive: Negative Genitourinary: Positive: Negative Motor: Positive: Negative Neurovascular: Positive: Negative Musculoskeletal: Positive: Negative Neurological/Mental Status: Positive: Negative Psychological: Positive: Other - sad following of his dog Is Patient Immunocompromised?: No Physical Exam Triage Information Reviewed: Yes Appearance: Well-Appearing, No Pain Distress Eyes: Positive: Conjunctiva Clear ENT: Positive: Pharynx normal, Nasal congestion, Sinus tenderness. Negative: Tonsillar swelling Dental Exam: Normal Neck: Positive: Supple, Nontender, No Lymphadenopathy Respiratory: Positive: Normal breath sounds - overall good air entry with some late wheeze., Wheezing - mild late expiratory wheezes.. Negative: No respiratory distress, No accessory muscle use, Stridor Cardiovascular: Positive: RRR, No Murmur Musculoskeletal Exam: Normal Neurological Exam: Normal Neurological: Positive: Alert Psychological Exam: Normal - a little tearful following dog loss. Skin Exam: Normal Throat Pain/Nasal Course/Dx - Course Course Of Treatment: augmentin for treatment of sinusitis, albuterol as needed. - Differential Dx/Diagnosis Differential Diagnosis/HQI/PQRI: Pharyngitis, Sinusitis, URI, Other - bronchits Provider Diagnosis: Sinusitis Discharge ED - Sign-Out/Discharge Documenting (check all that apply): Patient Departure All imaging exams completed and their final reports reviewed: No Studies - Discharge Plan Condition: Stable Disposition: HOME Prescriptions: Albuterol HFA INHALER* [Ventolin HFA Inhaler*] 2 puff INH Q6H PRN #1 mdi PRN Reason: Wheezing Amoxicillin/Clavulanate TAB* [Augmentin TAB 875*] 875 mg PO BID #14 tab Patient Education Materials: Sinusitis (ED) Referrals: Kristopher Coleman MD [Primary Care Provider] - Additional Instructions: Begin augmentin for treatment of sinusitis and ensure that you complete the full course. Continue use of flonase spray to relieve sinus congestion, but you might increase to a more potent antihistamine for allergies, such as fexofenadine 180mg daily OR cetirazine 10mg daily for the remainder of your allergy season. Your lungs are overall clear, and the occasional wheezing is most likely related to sinus drainage and smoking. Use albuterol as needed. Follow up if you develop increasing shortness of breath, fever or your symptoms do not improve following the course of treatment. - Billing Disposition and Condition Condition: STABLE Disposition: Home
== END 2020-01-16 18:17 | disposition home or self-care (01) ==
LOC: UCCORT 16:37
DX: J32.9 Chronic sinusitis, unspecified (principal); R05 Cough; E11.9 Type 2 diabetes mellitus without complications; Z79.84 Long term (current) use of oral hypoglycemic drugs; J45.909 Unspecified asthma, uncomplicated; Z88.5 Allergy status to narcotic agent; F17.210 Nicotine dependence, cigarettes, uncomplicated
CPT/HCPCS: 99212; G0463